=== PATIENT | male | born 1965 | race Caucasian/White ===

== ENCOUNTER 2016-08-13 07:44 | Inpatient (IN) ==
[2016-08-13] MEDS ORDERED: *HR* HYDROmorphone (PF) 1 MG/ML SYRINGE IVP ONE (07:57)
[2016-08-13] MEDS ORDERED: Pantoprazole 80 MG in 0.9 % Sodium Chloride 50 ML IVPB ONE (07:57)
[2016-08-13] MEDS ORDERED: Ondansetron 4 MG/2 ML VIAL IVP ONE (07:57)
[2016-08-13] MEDS ORDERED: Octreotide 50 MCG/ML SYRINGE IVP ONE (07:57)
--- NOTE | 2016-08-13 08:04 | Emergency Department Note ---
Disposition Clinical Impression: Acute GI bleeding, Throat cancer, Tongue cancer, Severe anemia Anemia Qualifiers: Anemia type: other cause Other causes of anemia: antineoplastic chemotherapy Qualified Code(s): D64.81 - Anemia due to antineoplastic chemotherapy Disposition: Admitted As Inpatient Condition: Serious [facility]errals: [facility] [Primary Care Provider[facility] - Time of Disposition: 10:43 GI Bleed HPI - General Chief complaint: ED GI Bleed Stated complaint: vomiting blood, blood coming out of peg tube Time Seen by Provider: 08/13/16 07:56 Source: patient, family Limitations: no limitations Nursing Notes Reviewed: Yes Vital Signs Reviewed: Yes - History of Present Illness HPI Narrative: Patient is a 50-year-old male with a past medical history of this, 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 Patient states that he vomited blood while sleeping some. - Related Data Home Medications Medication Instructions Recorded Confirmed Lisinopril [Zestril] 10 mg PO BID 01/26/16 08/10/16 OxyCODONE ER (12 HR) [OxyCONTIN] 40 mg PO Q8HR PRN 01/26/16 08/10/16 Baclofen 20 mg PO TID 03/14/16 08/10/16 Pregabalin [Lyrica] 150 mg PO BID 03/14/16 08/10/16 Ibuprofen [Motrin] 800 mg PO BID 08/13/16 08/13/16 Previous Rx's Medication Instructions Recorded Magic Mouthwash [Magic Mouthwash 10 ml PO QID PRN #240 ml 07/02/16 BLM] Ondansetron HCl [Zofran] 4 mg PO BID PRN #60 tablet 07/03/16 Prochlorperazine Maleate 10 mg PO Q8HR PRN #90 tablet 07/03/16 [Compazine] Allergies Allergy/AdvReac Type Severity Reaction Status Date / Time No Known Allergies Allergy Verified 02/14/15 06:26 Review of Systems: Patient complains of anterior neck pain All systems ED: reviewed and negative except as stated. Constitutional: Reports: weakness. Denies: fever, chills Cardiovascular: Reports: palpitations. Denies: chest pain Respiratory: Reports: cough. Denies: dyspnea, wheezes Gastrointestinal: Reports: vomiting. Denies: abdominal pain, nausea Musculoskeletal: Denies: back pain Past Medical History - Past Medical History Attestation: Yes The following information was validated with the patient. Medical history: Reports: cancer, hypertension Surgical history: Reports: herniorrhaphy (left inguinal), other (right hemiglossectomy and modified radical neck dissection) Psychiatric history: Reports: no psych history - Social History Smoking Status: Current every day smoker Smokeless Tobacco Status: No Alcohol use: Reports: occasionally Drug use: Reports: none Physical Exam Vital Signs Temperature 97.6 F 08/13/16 07:47 Pulse Rate 101 08/13/16 07:47 Respiratory Rate 16 08/13/16 07:47 Blood Pressure 121/49 08/13/16 07:47 O2 Sat by Pulse Oximetry 100 08/13/16 07:47 Temperature 97.6 F 08/13/16 07:47 Pulse Rate 98 08/13/16 08:00 Respiratory Rate 16 08/13/16 08:00 Blood Pressure 115/73 08/13/16 08:00 O2 Sat by Pulse Oximetry 100 08/13/16 08:00 Oxygen Delivery Oxygen Delivery Room Air -General Appearance: Patient is a 50-year-old male who appears much older than stated age. Patient is alert and oriented 3, speaks a very raspy voice, visible pallor -Neurological exam: Cranial nerves II-12 intact, no focal deficits observed, strength equal 5/5 bilaterally in upper and lower extremities, cerebellar motion test negative. Negative loss of sensation - Head Head exam: atraumatic, normocephalic, normal inspection, patient has minor scrapes and abrasions on his face to include medial brow and nose, no mastoid bruising - Eye Eye exam: Present: normal appearance, PERRL, EOMI, negative for scleral icterus positive for conjunctival pallor - ENT ENT exam: normal exam, normal oropharynx, mucous membranes moist, dried dark blood in mouth, dried blood in both nares, nose nontender to palpation - Neck Neck exam: Present: normal inspection, full ROM, trachea midline, negative JVD, tender to palpation throughout anterior cervical region - Chest Chest inspection: Present: Patient has bilateral equal rise and fall of chest wall. Non-tender to palpation. - Respiratory Respiratory exam: Clear to auscultation bilaterally without wheezes rales or rhonchi Cardiovascular Cardiovascular exam: Present: regular rate, normal rhythm, normal heart sounds, without murmurs rubs or gallops. - Abdominal Exam Abdominal exam: Present: soft, nondistended, Non-Tender light and deep palpation in all quadrants. Bowel sounds normoactive throughout all 4 quadrants. PEG tube left side of abdomen. Filled dark-colored fluid - Extremities Exam Extremities exam: Present: normal inspection, full ROM, Refill greater than 2 seconds pulses equal bilateral radial and dorsal pedal - Back Exam Back exam: Present: normal inspection, full ROM. Negative left or right CVA tenderness palpation - Psychiatric Psychiatric exam: Present: normal affect, normal mood - Skin Skin exam: Present: warm, dry, intact, pale color - General Limitations: no limitations General appearance: alert Course Course Narrative: Patient seen and examined. Labs ordered type and screen ordered. Patient's workup is in progress. Patient states his pain is 7 out of 10. Pain meds being administered now - Reevaluation(s) Reevaluation #1: Patient is doing well. Patient received medication for pain. Time: 09:00 Reevaluation #2: Patient still doing well. He just received discussion concerning DNR status and signed consent form for blood transfusion Time: 09:29 - Consultations Consultation #1: Dr. Carreon was consulted and will see the pt Time: 10:05 Consultation #2: Dr. Hughes has accepted the patient for admission Time: 10:54 Vital Signs Temperature 97.6 F 08/13/16 07:47 Pulse Rate 101 08/13/16 07:47 Respiratory Rate 16 08/13/16 07:47 Blood Pressure 121/49 08/13/16 07:47 O2 Sat by Pulse Oximetry 100 08/13/16 07:47 Temperature 98.1 F 08/13/16 11:00 Pulse Rate 84 08/13/16 11:30 Respiratory Rate 16 08/13/16 12:00 Blood Pressure 142/85 08/13/16 12:00 O2 Sat by Pulse Oximetry 100 08/13/16 11:30 Oxygen Delivery Oxygen Delivery Nasal Cannula GI Bleed - [facility] Narrative Medical decision making narrative: Mr. Avila is a 50-year-old male with a history, cell carcinoma to the tongue and throat. Patient currently under going chemotherapy last dose was 3 days ago. Patient presents with acute onset of GI bleed. Patient woke up and noticed he had thrown up blood on himself 6 hours ago. We had a detailed conversation with the patient concerning receiving blood transfusion today. Patient has consented to blood transfusion. Also had conversation about DNR status. Patient has elected DNR CCA. Patient's hemoglobin is 4.9 today. Previous hemoglobin and record 8.2. Hematocrit 50.4. Patient's BMP shows BUN of 48. Patient has a history of renal insufficiency as well. He is admitted to hospital. Dr. Philip hospice will see the patient and determine whether patient goes on to hospice from here on out. Dr. Hughes has accepted the patient for admission - Medical Records Medical records reviewed: Yes I reviewed the patient's medical records. - Lab Data Lab results reviewed: Yes I reviewed the patient's lab results. Lab results narrative: Short CBC 08/13/16 Range/Units 08:14 WBC 17.4 H D (4.3-11.1) K/mcL Hgb 4.9 L* D (12.9-16.9) g/dL Hct 15.4 L (37.5-50.1) % Plt Count 292 (140-400) K/mcL BMP 08/13/16 Range/Units 08:14 Sodium 143 D (136-145) mEq/L Potassium 4.5 (3.5-4.5) mEq/L Chloride 105 (98-109) mEq/L Carbon Dioxide 25 (19-29) mEq/L BUN 48 H D (8-26) mg/dL Creatinine 0.66 L (0.72-1.25) mg/dL Glucose 144 H (70-99) mg/dL Calcium 9.3 (8.6-10.8) mg/dL Result diagrams: 08/13/16 08:14 08/13/16 08:14 Lab Results 08/13/16 08/13/16 08/13/16 Range/Units 08:14 08:14 08:14 WBC 17.4 H D (4.3-11.1) K/mcL RBC 1.67 L (4.19-5.50) M/mcL Hgb 4.9 L* D (12.9-16.9) g/dL Hct 15.4 L (37.5-50.1) % MCV 92.2 (83.0-100.0) fL MCH 29.3 (28.0-33.3) pg MCHC 31.8 (31.6-35.5) g/dL RDW 18.8 H (11.5-14.5) % Plt Count 292 (140-400) K/mcL MPV 9.7 (9.4-12.4) fL Immature Gran % Test Not Performed Seg Neutrophils % 96.0 % Lymphocytes % 4.0 % Monocytes % Test Not Performed Eosinophils % Test Not Performed Basophils % Test Not Performed Neutrophils # 16.7 H (1.6-8.9) K/mcL Lymphocytes # 0.7 (0.6-4.6) K/mcL Monocytes # Test Not Performed Eosinophils # Test Not Performed Basophils # Test Not Performed Platelet Estimate Normal (Normal) PT 15.6 H (9.4-12.1) Seconds INR 1.4 APTT 31.0 (26.0-36.0) Seconds Sodium 143 D (136-145) mEq/L Potassium 4.5 (3.5-4.5) mEq/L Chloride 105 (98-109) mEq/L Carbon Dioxide 25 (19-29) mEq/L BUN 48 H D (8-26) mg/dL Creatinine 0.66 L (0.72-1.25) mg/dL Est GFR ( Amer) > 60 (> 60) Est GFR (Non-Af Amer) > 60 (> 60) BUN/Creatinine Ratio 73 H (6-26) Glucose 144 H (70-99) mg/dL Calculated Osmolality 311 H (280-300) Calcium 9.3 (8.6-10.8) mg/dL Magnesium 2.0 (1.6-2.6) mg/dL Blood Type Antibody Screen Crossmatch 08/13/16 Range/Units 08:14 WBC (4.3-11.1) K/mcL RBC (4.19-5.50) M/mcL Hgb (12.9-16.9) g/dL Hct (37.5-50.1) % MCV (83.0-100.0) fL MCH (28.0-33.3) pg MCHC (31.6-35.5) g/dL RDW (11.5-14.5) % Plt Count (140-400) K/mcL MPV (9.4-12.4) fL Immature Gran % Seg Neutrophils % % Lymphocytes % % Monocytes % Eosinophils % Basophils % Neutrophils # (1.6-8.9) K/mcL Lymphocytes # (0.6-4.6) K/mcL Monocytes # Eosinophils # Basophils # Platelet Estimate (Normal) PT (9.4-12.1) Seconds INR APTT (26.0-36.0) Seconds Sodium (136-145) mEq/L Potassium (3.5-4.5) mEq/L Chloride (98-109) mEq/L Carbon Dioxide (19-29) mEq/L BUN (8-26) mg/dL Creatinine (0.72-1.25) mg/dL Est GFR ( Amer) (> 60) Est GFR (Non-Af Amer) (> 60) BUN/Creatinine Ratio (6-26) Glucose (70-99) mg/dL Calculated Osmolality (280-300) Calcium (8.6-10.8) mg/dL Magnesium (1.6-2.6) mg/dL Blood Type A POSITIVE Antibody Screen NEGATIVE Crossmatch See Detail - Radiology Data Radiology results reviewed: Yes I reviewed the patient's radiology results. Chest X-Ray 08/13/16 07:57 IMPRESSION: No acute cardiopulmonary disease. Nondisplaced fracture of the right 1st rib, possibly a pathologic fracture. D/ / Bayron Morris MD / Bayron Morris MD Interpreting Provider: Bayron Morris MD Head CT 08/13/16 08:01 IMPRESSION: Small nonspecific area of low-attenuation in the right posterior parietal region, new from 06/25/2016. This may represent small infarct or edema from a metastatic lesion. Follow-up MRI brain with contrast is recommended. The study was motion degraded. D/ / Bayron Morris MD / Bayron Morris MD Interpreting Provider: Bayron Morris MD Gallbladder Ultrasound 08/13/16 08:25 IMPRESSION: Unremarkable right upper quadrant ultrasound. D/ / Carol Parisi MD / Carol Parisi MD Interpreting Provider: Carol Parisi MD - EKG Data EKG attestation: Yes I reviewed and interpreted this EKG. EKG results narrative: EKG taken 08/13/2016 at 0801 hrs. shows a normal sinus rhythm at a ventricular rate of 94 beats minute no acute ST elevations or depressions in leads T wave inversion Critical Care Time Critical Care Time: Yes Total Critical Care Time: 40 Attestation: Critical care performed: Time is exclusive of separately billable procedures. Time includes: direct patient care, patient reassessment, coordination of patient care, interpretation of data (laboratory data, radiology data, and respiratory data), review of patient's medical records, medical consultation and documentation of patient care. Procedures included in critical care time: Procedures excluded from critical care time: Attestation Statement - Attestation Attestation: I examined this patient and my medical decision-making was reviewed with the BATTERY CHARGER/PA/Advanced Practice Nurse/Resident Physician. I agree with the documented findings, disposition and treatment plan as described except to the extent set forth below. Patient to the emergency department with a chief complaint of vomiting blood. Onset last night. Patient currently undergoing treatment for terminal cancer. He had some large bloody emesis last night along with perioperative from his PEG tube. On exam the patient is pale. He has dark red blood in his PEG tube tubing. Plan. Small amount of dark red blood obtained with PEG tube was hooked up to suction. Patient is typed and crossed and a hemoglobin of 4. Beginning transfusion. Patient has a DNR comfort care arrest form being filled out and placed on his chart. Patient is adamant he does not want to be helped up to machines for life-support. He does not want any tubes intubated or put him on a ventilator. Patient be admitted for transfusions with palliative care consult. Transfusion started in ED. Hospitalist evaluated here as well. Admitted to medicine with palliative care consult.
[2016-08-13 08:23] LABS: Hematocrit 15.4 % (37.5-50.1); Mean Corpuscular HGB Conc 31.8 g/dL (31.6-35.5); Mean Corpuscular Hemoglobin 29.3 pg (28.0-33.3); Mean Corpuscular Volume 92.2 fL (83.0-100.0); Mean Platelet Volume 9.7 fL (9.4-12.4); Neutrophils # 16.7 K/mcL (1.6-8.9); Platelet Count 292 K/mcL (140-400); Red Blood Count 1.67 M/mcL (4.19-5.50); Red Cell Distribution Width 18.8 % (11.5-14.5)
[2016-08-13 08:31] LABS: INR 1.4; Prothrombin Time 15.6 Seconds (9.4-12.1)
[2016-08-13 08:37] LABS: BUN/Creatinine Ratio 73 (6-26); Calcium 9.3 mg/dL (8.6-10.8); Carbon Dioxide 25 mEq/L (19-29); Chloride 105 mEq/L (98-109); Glucose 144 mg/dL (70-99); Osmolality,Calculated 311 (280-300); Potassium 4.5 mEq/L (3.5-4.5); eGFR For African Americans > 60 (> 60); eGFR For Non-African Americans > 60 (> 60)
[2016-08-13 08:38] LABS: Blood Urea Nitrogen 48 mg/dL (8-26); Sodium 143 mEq/L (136-145)
[2016-08-13 08:42] LABS: Hemoglobin 4.9 g/dL (12.9-16.9)
[2016-08-13 09:36] LABS: Lymphocytes # 0.7 K/mcL (0.6-4.6)
[2016-08-13] MEDS: Pantoprazole 40 MG in 0.9 % Sodium Chloride Mini Bag 100 ML IVC SCH ×4 (09:36→18:36)
[2016-08-13 09:37] LABS: Platelet Estimate Normal (Normal)
[2016-08-13] MEDS ORDERED: 0.9 % Sodium Chloride 1,000 ML IVC ONE (10:35)
[2016-08-13] MEDS ORDERED: 0.9 % Sodium Chloride 500 ML ONE (10:36)
--- NOTE | 2016-08-13 11:09 | Palliative - Consult Note ---
<Sorin Hernandez - Last Filed: 08/13/16 14:21> Date of Encounter: 08/13/16 Time of Encounter: 11:08 - Assessment and Plan (1) Goals of care, counseling/discussion Current Visit: Yes Status: Acute Assessment and plan: Pt. with hx of head/neck cx here for GI bleed causing severe anemia. Discussed CODE STATUS. Patient and Patient POA/Niece both agree to DNR CCA DNI CODE STATUS Pt. interested in hospice but uncertain whether or not he'd like to stop chemotherapy at this time. After a long discussion with patient and family members in room patient will make a decision shortly. Current pain control regimen at home is 40mg oxycontin q8h. Currently ordered 0.5 mg IV dilaudid q4h prn. Will titrate as necessary to optimize pain control. Pt has zofran 4mg IV q4h prn for nausea Pt. states he is having regular bowel movements. (2) Acute GI bleeding Current Visit: Yes Status: Acute Assessment and plan: likely 2/2 GI bleed Hgb of 4.9 currently receiving 2 units PRBC care per primary team (3) Severe anemia Current Visit: Yes Status: Acute Assessment and plan: Likely 2/2 GI bleed as above, per primary team (4) Head and neck cancer Current Visit: Yes Status: Acute Assessment and plan: hx of head/neck squamous cell carcinoma has received chemo/radiation/resection planned to possibly have another round of chemo in approximately 3 weeks. Unclear at this time if pt. will proceed with chemo or will forgo chemo for hospice. Palliative-CN HPI - Data of Consult Patient: new to practice Consult date: 08/13/16 Requesting Physician: Adan Gustafson MD Primary Care Provider: [facility] - Consult Narrative Palliative Care/Comfort Measures: Palliative care History of present illness: Mr. Avila is a 50 year old male presented to ED with GI bleed. 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 Not surgically resectable. He has received multiple rounds of chemo and radiation along with s/p rt hemiglossectomy and rt neck node dissection. Niece is is HCP. His code status was discussed at the bedside with his niece in the room and he requested his CODE STATUS to be RUTH HACKETT DNI. He does not feel like the chemotherapy is helping him anymore and is considering hospice. He takes 40mg oxycodone q4h at home, but states that this is making him too sleepy and he recently started taking 20mg oxycodone q4h at home. He states that he has regular bowel movements. CC: Adan Gustafson MD Past Med Surg Social Fam HX - Past Medical History Medical history: cancer, hypertension Psychiatric history: no psych history - Past Surgical History Surgical History: herniorrhaphy (left inguinal), other (right hemiglossectomy and modified radical neck dissection) - Social History Smoking Status: Current every day smoker Smokeless Tobacco Status: No Alcohol use: occasionally Drug use: none - Family History Father Living Status: Mother Living Status: Hx Family Cancer: Yes (throat) Hx Family Endocrine Disorder: Yes Medications and Allergies Lisinopril [Zestril] 10 mg PO BID 01/26/16 [History] OxyCODONE ER (12 HR) [OxyCONTIN] 40 mg PO Q8HR PRN 01/26/16 [History] Baclofen 20 mg PO TID 03/14/16 [History] Pregabalin [Lyrica] 150 mg PO BID 03/14/16 [History] Magic Mouthwash [Magic Mouthwash BLM] 10 ml PO QID PRN #240 ml 07/02/16 [Rx] Ondansetron HCl [Zofran] 4 mg PO BID PRN #60 tablet 07/03/16 [Rx] Prochlorperazine Maleate [Compazine] 10 mg PO Q8HR PRN #90 tablet 07/03/16 [Rx] Ibuprofen [Motrin] 800 mg PO BID 08/13/16 [History] Allergies No Known Allergies Allergy (Verified 02/14/15 06:26) - Constitutional Constitutional ROS PAL: anorexia, fatigue, malaise - EENT Additional comments: s/p rt hemiglossectomy and rt neck node dissection - Cardiovascular Cardiovascular ROS: no chest pain - Respiratory Respiratory: dyspnea - Gastrointestinal Gastrointestinal: hematemesis, melena Additional comments: peg tube - Psychiatric Psychiatric general PM: depression Palliative Care-Exam - Constitutional Vitals: Temp Pulse Resp BP Pulse Ox 98.1 F 82 16 128/84 100 08/13/16 11:00 08/13/16 11:00 08/13/16 11:00 08/13/16 11:00 08/13/16 11:00 General appearance: Present: thin - Head Head Exam: Present: atraumatic - Expanded ENT Exam Mouth Exam: Present: muffled voice. Absent: tongue normal Throat exam: Absent: normal inspection - Neck Neck exam: Absent: full ROM - Respiratory Respiratory exam: Present: rhonchi. Absent: accessory muscle use - Cardiovascular Cardiovascular exam: Present: RRR (peg tube) - GI/Abdominal Exam GI/Abdominal exam: Absent: distended, firm - Neurological Exam Neurological exam: Present: alert, oriented X3 Internal Medicine - CN: Reslt - Labs CBC & Chem 7: 08/13/16 08:14 08/13/16 08:14 - ABG Interpretation ABG results: PT/INR, D-dimer PT 15.6 Seconds (9.4-12.1) H 08/13/16 08:14 Consult Discharge Plan - Plan [facility]errals: [facility] [Primary Care Provider] - Palliative Quality Palliative Quality: Screen for Code Status: Yes, Screen for Goals of Care: Yes, Screen for Pain: Yes, If Pain Regimen Started, Initiate Bowel Regimen: Yes, Screen for Nausea/Vomitting: Yes Code Status: DNR CCA DNI <Jaydon Carreon - Last Filed: 08/13/16 17:13> Date of Encounter: 08/13/16 Palliative-CN HPI - Data of Consult Requesting Physician: Adan Gustafson MD Primary Care Provider: PCP [place] - Consult Narrative History of present illness: Mr. Avila is a 50 year old male CC: Adan Gustafson MD Palliative Care-Exam - Constitutional Vitals: Temp Pulse Resp BP Pulse Ox 98.3 F 76 16 142/90 98 08/13/16 17:08 08/13/16 17:08 08/13/16 17:08 08/13/16 17:08 08/13/16 17:08 Internal Medicine - CN: Reslt - Labs CBC & Chem 7: 08/13/16 08:14 08/13/16 08:14 - ABG Interpretation ABG results: PT/INR, D-dimer PT 15.6 Seconds (9.4-12.1) H 08/13/16 08:14 - Attending Attestation I examined this patient and my medical decision-making was reviewed with the [employer] SPECIALIST/PA/Advanced Practice Nurse/Resident Physician. I agree with the documented findings, disposition and treatment plan as described except to the extent set forth below.
[2016-08-13] MEDS ORDERED: Naloxone 0.4 MG/ML INJ IVP PRN (12:45)
--- NOTE | 2016-08-13 13:04 | Internal Med History&Physical ---
Date of Encounter: 08/13/16 Time of Encounter: 11:00 Assessment and Plan (1) Tobacco abuse disorder Current visit: Yes Status: Acute While providing neck and then patch. (2) Acute GI bleeding Current visit: Yes Status: Acute Transfuse 2 units PRBC. Check hemoglobin and hematocrit every 6 hours. Consult GI for upper endoscopy. The case discussed with ED physician and they have recommended and already contacted palliative care services. IV Protonix bolus given and ED, was start Protonix drip. Nothing by mouth. Nothing but the PEG tube. Case discussed with GI. Plan for EGD tomorrow after he has been transfused for hemoglobin above 7. The patient is at high risk for morbidity mortality and complications due to acute GI bleed requiring urgent invasive procedure, cancer involving the vital organs and treatment with intravenous controlled substances. (3) Head and neck cancer Current visit: Yes Status: Acute Consult palliative care. (4) Severe anemia Current visit: Yes Status: Acute Likely acute on chronic secondary to GI bleed and decreased production secondary to malignancy. We will transfuse to bring hemoglobin above 7.0. We will monitor clinically. (5) Protein-calorie malnutrition, severe Current visit: No Status: Acute Nutrition consult. Hold tube feeds for now until cleared by GI. (6) DVT prophylaxis Current visit: Yes Status: Acute SCDs. No pharmacological prophylaxis due to acute GI bleed. Internal Medicine - H&P: HPI Chief complaint: Vomiting blood Admitted From: Emergency Dept Plans for Post Hospital Care: Hospice - Home History of present illness: Mr. 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 He started having copious amounts of bloody vomitus associated with nausea early this morning woke him up from sleep, denies any associated shortness of breath or abdominal pain. He also noted some bloody leakage around the PEG tube and through the PEG tube yesterday that he does not have any vomiting yesterday. He was evaluated in the emergency department and his hemoglobin was 4.9. He was ordered for 2 units of blood. He was referred for admission. Review of systems: Positive for generalized weakness, dysphagia, chronic pain, GI bleed as above otherwise 10 systems reviewed and found negative Past Med Surg Social Fam HX - Past Medical History Medical history: cancer, hypertension Psychiatric history: no psych history - Past Surgical History Surgical History: herniorrhaphy (left inguinal), other (right hemiglossectomy and modified radical neck dissection) - Social History Smoking Status: Current every day smoker Smokeless Tobacco Status: No Alcohol use: occasionally Drug use: none - Family History Father Living Status: Mother Living Status: Hx Family Cancer: Yes (throat) Hx Family Endocrine Disorder: Yes Internal Medicine - H&P: Meds Lisinopril [Zestril] 10 mg PO BID 01/26/16 [History] OxyCODONE ER (12 HR) [OxyCONTIN] 40 mg PO Q8HR PRN 01/26/16 [History] Baclofen 20 mg PO TID 03/14/16 [History] Pregabalin [Lyrica] 150 mg PO BID 03/14/16 [History] Magic Mouthwash [Magic Mouthwash BLM] 10 ml PO QID PRN #240 ml 07/02/16 [Rx] Ondansetron HCl [Zofran] 4 mg PO BID PRN #60 tablet 07/03/16 [Rx] Prochlorperazine Maleate [Compazine] 10 mg PO Q8HR PRN #90 tablet 07/03/16 [Rx] Ibuprofen [Motrin] 800 mg PO BID 08/13/16 [History] Allergies No Known Allergies Allergy (Verified 02/14/15 06:26) All Systems PM: A 10-system review of systems was performed and is negative for pertinent findings except as documented above in the HPI. - Constitutional Vitals: Temp Pulse Resp BP Pulse Ox 98.1 F 84 16 142/85 100 08/13/16 11:00 08/13/16 11:30 08/13/16 12:00 08/13/16 12:00 08/13/16 11:30 General appearance: Present: cachectic, A&O X 3 - Eye Eye exam: Present: PERRL, conjuntiva pink, sclera anicteric Pupils: Present: PERRL - Neck Additional comments: Right cervical mass palpated adherent to the underlying muscles. Postoperative changes noted. - Respiratory Respiratory exam: Present: CTAB. Absent: accessory muscle use, rales, rhonchi, wheezes - Cardiovascular Cardiovascular exam: Present: RRR, +S1, +S2. Absent: diastolic murmur, gallop, rubs, systolic murmur - GI/Abdominal GI/Abdominal exam: Present: normal bowel sounds, soft, no peritoneal signs. Absent: distended, tenderness Additional comments: PEG tube present in place connected to suction draining dark red bloody material - Extremities Exam Extremities exam: Present: warm, radial pulses palpable and symetrical. Absent : calf tenderness, cyanotic, pedal edema - Skin Skin exam: Present: dry, intact Internal Med - H&P Results - Labs CBC & Chem 7: 08/13/16 08:14 08/13/16 08:14
[2016-08-13] MEDS: D5% in 0.45% NACL 1,000 ML IVC SCH (13:08)
[2016-08-13] MEDS: *HR* HYDROmorphone (PF) 1 MG/ML SYRINGE IVP PRN ×3 (13:12→23:13)
[2016-08-13] MEDS ORDERED: 0.9 % Sodium Chloride 250 ML ONE (13:47)
[2016-08-13] MEDS: Ondansetron 4 MG/2 ML VIAL IVP PRN (15:32)
[2016-08-13] MEDS: Nicotine 21 MG PATCH.TD24 TD SCH (17:05)
[2016-08-13 18:49] LABS: Hematocrit 21.4 % (37.5-50.1)
[2016-08-13] MEDS ORDERED: Furosemide 20 MG/2 ML VIAL IVP ONE (19:04)
[2016-08-14] MEDS: Pantoprazole 40 MG in 0.9 % Sodium Chloride Mini Bag 100 ML IVC SCH ×3 (00:38→10:51)
[2016-08-14 01:28] LABS: Hematocrit 23.7 % (37.5-50.1); Hemoglobin 7.8 g/dL (12.9-16.9)
[2016-08-14 01:41] LABS: Calcium 8.7 mg/dL (8.6-10.8); Carbon Dioxide 27 mEq/L (19-29); Chloride 102 mEq/L (98-109); Glucose 142 mg/dL (70-99); Magnesium 1.6 mg/dL (1.6-2.6); Potassium 3.6 mEq/L (3.5-4.5); Sodium 139 mEq/L (136-145); eGFR For African Americans > 60 (> 60); eGFR For Non-African Americans > 60 (> 60)
[2016-08-14] MEDS: *HR* HYDROmorphone (PF) 1 MG/ML SYRINGE IVP PRN ×8 (02:07→23:58)
[2016-08-14 02:13] LABS: BUN/Creatinine Ratio 59 (6-26); Osmolality,Calculated 298 (280-300)
[2016-08-14 02:16] LABS: Blood Urea Nitrogen 35 mg/dL (8-26)
[2016-08-14] MEDS ORDERED: 0.9 % Sodium Chloride 500 ML ONE (03:26)
[2016-08-14] MEDS: D5% in 0.45% NACL 1,000 ML IVC SCH ×2 (03:38→16:56)
[2016-08-14] MEDS: Ondansetron 4 MG/2 ML VIAL IVP PRN (04:03)
[2016-08-14] MEDS ORDERED: *HR* HYDROmorphone 2 MG/ML SYRINGE IVP PRN (05:32)
[2016-08-14] MEDS ORDERED: *HR* FentaNYL PATCH 50 MCG PATCH TD SCH (06:00)
[2016-08-14 08:15] LABS: Basophils % 0.2 %; Hematocrit 28.9 % (37.5-50.1); Immature Granulocytes % 0.5 % (0-4); Lymphocytes # 0.3 K/mcL (0.6-4.6); Lymphocytes % 2.4 %; Mean Corpuscular HGB Conc 33.2 g/dL (31.6-35.5); Mean Corpuscular Hemoglobin 28.2 pg (28.0-33.3); Mean Platelet Volume 9.8 fL (9.4-12.4); Monocytes # 0.2 K/mcL (0.0-1.3); Monocytes % 1.3 %; Neutrophils # 11.8 K/mcL (1.6-8.9); Platelet Count 205 K/mcL (140-400); Red Blood Count 3.41 M/mcL (4.19-5.50); Red Cell Distribution Width 17.1 % (11.5-14.5); Segmented Neutrophils % 95.6 %
[2016-08-14 08:18] LABS: Hemoglobin 9.6 g/dL (12.9-16.9); Mean Corpuscular Volume 84.8 fL (83.0-100.0)
[2016-08-14] MEDS: Nicotine 21 MG PATCH.TD24 TD SCH (08:24)
[2016-08-14 09:12] LABS: % Iron Saturation 87 % (20-55); Iron 257 mcg/dL (65-175); Transferrin 211 mg/dL (174-364)
[2016-08-14 09:35] LABS: Ferritin 339 ng/ml (22-275)
--- NOTE | 2016-08-14 10:58 | Palliative Progress Note ---
<Sorin Hernandez - Last Filed: 08/14/16 11:24> Date of Encounter: 08/14/16 Time of Encounter: 10:44 - Assessment and plan (1) Goals of care, counseling/discussion Current Visit: Yes Status: Acute Assessment and plan: Patient seen and examined. Goals of care discussion continued. Pt. still plans to return home. He is still undecided as to whether he wants to continue chemotherapy for his head/ neck cancer, or if he wants to go hospice. Family was curious as to if he could be in hospice and still receive chemotherapy, but this is not possible. GI is consulted and will see patient today for possible scope to search for source of bleeding. He had recent PEG tube placed approximately two months ago. CODED STATUS remains DNR [facility] DNI For pain control, patient previously had been on a fentanyl patch for a number of years, but does not like this medication. During this stay a fentanyl patch was ordered, but patient refused. He is currently receiving 1MG dilaudid IV q2h PRN. He is happy with this current pain regimen. Pt. requested this not be changed at this time. He can be transitioned back to his home meds as he gets closer to discharge. His med list has been updated accordingly. He has not had a BM for two days, per patient. Started on Senna BID. Denies nausea at this time. Protonix for GI prophylaxis. (2) Acute GI bleeding Current Visit: Yes Status: Acute Assessment and plan: GI to see patient today for possible scope. He has received 3 units PRBC during this stay. Hgb 4.9 upon admission. Today is 9.6 Vital signs are stable (3) Severe anemia Current Visit: Yes Status: Acute Assessment and plan: transfuse as needed (4) Head and neck cancer Current Visit: Yes Status: Chronic Assessment and plan: stable Dr. Fay is oncologist Undecided whether or not he will continue with chemotherapy at this time. - Time Spent With Patient Total time spent is greater than 50% in coordination of care (as documented) at patient's floor/unit and/or counseling patient: - Subjective Interval history: Patient seen and examined. Received 2 units PRBC yesterday without complication. Pt. states he is feeling much better this am. GI to see pt. this afternoon for elucidation of GI bleed. Sitting comfortably in chair. Conversational. States pain is well controlled with current regimen. States he has not had a BM for a few days. Denies n/v/d - Constitutional Vitals: Abnormal lab results WBC 12.3 K/mcL (4.3-11.1) H 08/14/16 08:00 RBC 3.41 M/mcL (4.19-5.50) L 08/14/16 08:00 Hgb 9.6 g/dL (12.9-16.9) L D 08/14/16 08:00 Hct 28.9 % (37.5-50.1) L 08/14/16 08:00 RDW 17.1 % (11.5-14.5) H 08/14/16 08:00 Neutrophils # 11.8 K/mcL (1.6-8.9) H 08/14/16 08:00 Lymphocytes # 0.3 K/mcL (0.6-4.6) L 08/14/16 08:00 PT 15.6 Seconds (9.4-12.1) H 08/13/16 08:14 BUN 35 mg/dL (8-26) H D 08/14/16 01:13 Creatinine 0.59 mg/dL (0.72-1.25) L 08/14/16 01:13 BUN/Creatinine Ratio 59 (6-26) H 08/14/16 01:13 Glucose 142 mg/dL (70-99) H 08/14/16 01:13 Iron 257 mcg/dL (65-175) H 08/14/16 08:00 % Saturation 87 % (20-55) H 08/14/16 08:00 Ferritin 339 ng/ml (22-275) H 08/14/16 08:00 General appearance: Present: cooperative, no acute distress, thin - ENT ENT exam: Absent: normal exam Additional comments: partial tongue resection - Respiratory Respiratory exam: Present: decreased breath sounds, wheezes - Cardiovascular Cardiovascular exam: Present: RRR - GI/Abdominal GI/Abdominal exam: Present: normal bowel sounds. Absent: distended, firm, guarding - Neurological Exam Neurological exam: Present: alert, oriented X3 Palliative Quality Palliative Quality: Screen for Code Status: Yes, Screen for Goals of Care: Yes, Screen for Pain: Yes, If Pain Regimen Started, Initiate Bowel Regimen: Yes, Screen for Nausea/Vomitting: Yes - Labs CBC & Chem 7: 08/14/16 08:00 08/14/16 01:13 Labs: Laboratory Results - last 24 hr 08/13/16 08/14/16 08/14/16 18:37 01:13 01:13 WBC RBC Hgb 7.0 L D 7.8 L Hct 21.4 L 23.7 L MCV MCH MCHC RDW Plt Count MPV Immature Gran % Seg Neutrophils % Lymphocytes % Monocytes % Eosinophils % Basophils % Neutrophils # Lymphocytes # Monocytes # Eosinophils # Basophils # Sodium 139 Potassium 3.6 Chloride 102 Carbon Dioxide 27 BUN 35 H D Creatinine 0.59 L Est GFR ( Amer) > 60 Est GFR (Non-Af Amer) > 60 BUN/Creatinine Ratio 59 H Glucose 142 H Calculated Osmolality 298 Calcium 8.7 Magnesium 1.6 Iron % Saturation Transferrin Ferritin 08/14/16 08/14/16 08:00 08:00 WBC 12.3 H RBC 3.41 L Hgb 9.6 L D Hct 28.9 L MCV 84.8 D MCH 28.2 MCHC 33.2 RDW 17.1 H Plt Count 205 MPV 9.8 Immature Gran % 0.5 Seg Neutrophils % 95.6 Lymphocytes % 2.4 Monocytes % 1.3 Eosinophils % 0.0 Basophils % 0.2 Neutrophils # 11.8 H Lymphocytes # 0.3 L Monocytes # 0.2 Eosinophils # 0.0 Basophils # 0.0 Sodium Potassium Chloride Carbon Dioxide BUN Creatinine Est GFR ( Amer) Est GFR (Non-Af Amer) BUN/Creatinine Ratio Glucose Calculated Osmolality Calcium Magnesium Iron 257 H % Saturation 87 H Transferrin 211 Ferritin 339 H - ABG Interpretation ABG results: PT/INR, D-dimer PT 15.6 Seconds (9.4-12.1) H 08/13/16 08:14 Consult Discharge Plan - Plan [facility]errals: [facility] [Primary Care Provider] - <Jaydon Carreon - Last Filed: 08/14/16 12:56> Date of Encounter: 08/14/16 - Time Spent With Patient Total time spent is greater than 50% in coordination of care (as documented) at patient's floor/unit and/or counseling patient: - Constitutional Vitals: Abnormal lab results WBC 12.3 K/mcL (4.3-11.1) H 08/14/16 08:00 RBC 3.41 M/mcL (4.19-5.50) L 08/14/16 08:00 Hgb 9.6 g/dL (12.9-16.9) L D 08/14/16 08:00 Hct 28.9 % (37.5-50.1) L 08/14/16 08:00 RDW 17.1 % (11.5-14.5) H 08/14/16 08:00 Neutrophils # 11.8 K/mcL (1.6-8.9) H 08/14/16 08:00 Lymphocytes # 0.3 K/mcL (0.6-4.6) L 08/14/16 08:00 PT 15.6 Seconds (9.4-12.1) H 08/13/16 08:14 BUN 35 mg/dL (8-26) H D 08/14/16 01:13 Creatinine 0.59 mg/dL (0.72-1.25) L 08/14/16 01:13 BUN/Creatinine Ratio 59 (6-26) H 08/14/16 01:13 Glucose 142 mg/dL (70-99) H 08/14/16 01:13 Iron 257 mcg/dL (65-175) H 08/14/16 08:00 % Saturation 87 % (20-55) H 08/14/16 08:00 Ferritin 339 ng/ml (22-275) H 08/14/16 08:00 - Attending Attestation I examined this patient and my medical decision-making was reviewed with the HAULAGE ENGINE OPERATOR/PA/Advanced Practice Nurse/Resident Physician. I agree with the documented findings, disposition and treatment plan as described except to the extent set forth below. - Labs CBC & Chem 7: 08/14/16 08:00 08/14/16 01:13 Labs: Laboratory Results - last 24 hr 08/13/16 08/14/16 08/14/16 18:37 01:13 01:13 WBC RBC Hgb 7.0 L D 7.8 L Hct 21.4 L 23.7 L MCV MCH MCHC RDW Plt Count MPV Immature Gran % Seg Neutrophils % Lymphocytes % Monocytes % Eosinophils % Basophils % Neutrophils # Lymphocytes # Monocytes # Eosinophils # Basophils # Sodium 139 Potassium 3.6 Chloride 102 Carbon Dioxide 27 BUN 35 H D Creatinine 0.59 L Est GFR ( Amer) > 60 Est GFR (Non-Af Amer) > 60 BUN/Creatinine Ratio 59 H Glucose 142 H Calculated Osmolality 298 Calcium 8.7 Magnesium 1.6 Iron % Saturation Transferrin Ferritin 08/14/16 08/14/16 08:00 08:00 WBC 12.3 H RBC 3.41 L Hgb 9.6 L D Hct 28.9 L MCV 84.8 D MCH 28.2 MCHC 33.2 RDW 17.1 H Plt Count 205 MPV 9.8 Immature Gran % 0.5 Seg Neutrophils % 95.6 Lymphocytes % 2.4 Monocytes % 1.3 Eosinophils % 0.0 Basophils % 0.2 Neutrophils # 11.8 H Lymphocytes # 0.3 L Monocytes # 0.2 Eosinophils # 0.0 Basophils # 0.0 Sodium Potassium Chloride Carbon Dioxide BUN Creatinine Est GFR ( Amer) Est GFR (Non-Af Amer) BUN/Creatinine Ratio Glucose Calculated Osmolality Calcium Magnesium Iron 257 H % Saturation 87 H Transferrin 211 Ferritin 339 H - ABG Interpretation ABG results: PT/INR, D-dimer PT 15.6 Seconds (9.4-12.1) H 08/13/16 08:14
[2016-08-14] MEDS ORDERED: *HR* Promethazine 25 MG/ML VIAL ONE (11:36)
[2016-08-14] MEDS: *HR* Promethazine 25 MG/ML VIAL IVP PRN ×2 (11:41→18:48)
--- NOTE | 2016-08-14 12:25 | Gastroenterology Consult Note ---
<Elder Bang Antonieta - Last Filed: 08/14/16 12:22> Date of Encounter: 08/14/16 Time of Encounter: 10:40 - Assessment and plan (1) Hematemesis without nausea Current Visit: Yes Status: Acute Assessment and plan: Pt with several episodes of hematemesis. He presented to the hospital with Hgb 4.9. RUQ US was unremarkable. Plan for EGD today to r/o esophagitis, gastritis, duodenitis, PUD, MW tear, or AVM. Keep pt NPO. (2) Severe anemia Current Visit: Yes Status: Acute Assessment and plan: Secondary to hematemesis. Continue to monitor CBC and transfuse PRBC as needed. Check iron and ferritin from ED sample. (3) Head and neck cancer Current Visit: Yes Status: Chronic - Time Spent With Patient Total time spent is greater than 50% in coordination of care (as documented) at patient's floor/unit and/or counseling patient: GI History of Present Illness - Data of Consult Patient: new to practice Consult date: 08/14/16 Requesting Physician: Zhang Evans - Consult Narrative Reason for consult: Hematemesis History of present illness: Mr. 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 History of severe dysphagia requiring PEG tube insertion. He presented with hematemesis and blood leaking around PEG tube. He started having copious amount of hematemesis yesterday morning. He denied SOB or abdominal pain. Hgb 4.9 on admission, and has received 4 units PRBC. Hgb 9.6 this AM with MCV 84.8. Procedures: EGD 02/07/2015 Dr. Morales: Gastritis, duodenitis, and Gonzalez's esophagus. NSAIDs: Ibuprofen Anticoagulation: None Past Med Surg Social Fam HX - Past Medical History Medical history: cancer, hypertension Psychiatric history: no psych history - Past Surgical History Surgical History: herniorrhaphy (left inguinal), other (right hemiglossectomy and modified radical neck dissection) - Social History Smoking Status: Current every day smoker Smokeless Tobacco Status: No Alcohol use: occasionally Drug use: none - Family History Father Living Status: Mother Living Status: Hx Family Cancer: Yes (throat) Hx Family Endocrine Disorder: Yes - Gastrointestinal Gastrointestinal: Present: as per HPI - Constitutional Constitutional: as per HPI - EENT Eyes: as per HPI Ears: Present: as per HPI Nose, mouth and throat: Present: as per HPI - Cardiovascular Cardiovascular ROS: Present: as per HPI - Respiratory Respiratory IM: Present: as per HPI - Genitourinary Genitourinary: Absent: change in color, Urinary frequency - Neurological ROS Neurological GI: Present: as per HPI - Hematologic/Lymphatic Hematologic/Lymphatic pediatric: Present: as per HPI - Musculoskeletal Musculoskeletal ROS GI: Present: as per HPI - Integumentary Integumentary GI: Present: as per HPI - Psychiatric ROS Psychiatric GI: Present: as per HPI - Endocrine Endocrine IM: Present: as per HPI - Constitutional Vitals: Temp Pulse Resp BP Pulse Ox 98.4 F 77 18 156/96 97 08/14/16 10:45 08/14/16 10:45 08/14/16 10:45 08/14/16 10:45 08/14/16 10:45 General appearance: Present: cooperative, A&O X 3, no acute distress, answers questions appropriately - Head Head exam: Present: atraumatic, normocephalic - Eye Eye exam: Present: normal appearance, sclera anicteric - ENT Additional comments: s/p right hemiglossectomy and neck node dissection. - Respiratory Respiratory exam: Present: CTAB. Absent: rales, rhonchi - Cardiovascular Cardiovascular exam: Present: RRR, +S1, +S2 - GI/Abdominal GI/Abdominal exam: Present: normal bowel sounds, soft, no peritoneal signs. Absent: distended, firm, guarding, tenderness Additional comments: PEG tube in place, to suction, draining dark material. - Rectal Rectal exam: Present: deferred - Extremities Exam Extremities exam: Present: warm - Neurological Exam Neurological exam: Present: no focal deficits - Psychiatric Psychiatric exam: Present: normal affect, normal mood - Skin Skin exam: Present: dry, intact, normal color, warm Results - Labs CBC & Chem 7: 08/14/16 08:00 08/14/16 01:13 Labs: Last Result Calcium 8.7 mg/dL (8.6-10.8) 08/14/16 01:13 Iron 257 mcg/dL (65-175) H 08/14/16 08:00 % Saturation 87 % (20-55) H 08/14/16 08:00 Transferrin 211 mg/dL (174-364) 08/14/16 08:00 Ferritin 339 ng/ml (22-275) H 08/14/16 08:00 Entire Visit Hgb 9.6 g/dL (12.9-16.9) L D 08/14/16 08:00 Hct 28.9 % (37.5-50.1) L 08/14/16 08:00 PT 15.6 Seconds (9.4-12.1) H 08/13/16 08:14 Ferritin 339 ng/ml (22-275) H 08/14/16 08:00 - ABG ABG results: PT/INR, D-dimer PT 15.6 Seconds (9.4-12.1) H 08/13/16 08:14 Consult Discharge Plan - Plan [facility]errals: [facility] [Primary Care Provider] - <Preeti Macias - Last Filed: 08/14/16 17:28> Date of Encounter: 08/14/16 Time of Encounter: 13:40 - Time Spent With Patient Total time spent is greater than 50% in coordination of care (as documented) at patient's floor/unit and/or counseling patient: GI History of Present Illness - Data of Consult Requesting Physician: Zhang Evans - Consult Narrative History of present illness: Mr. Avila is a 50 year old male - Constitutional Vitals: Temp Pulse Resp BP Pulse Ox 97.5 F L 81 14 147/91 95 08/14/16 15:21 08/14/16 15:38 08/14/16 15:38 08/14/16 15:38 08/14/16 15:38 Results - Labs CBC & Chem 7: 08/14/16 08:00 08/14/16 01:13 Labs: Last Result Calcium 8.7 mg/dL (8.6-10.8) 08/14/16 01:13 Iron 257 mcg/dL (65-175) H 08/14/16 08:00 % Saturation 87 % (20-55) H 08/14/16 08:00 Transferrin 211 mg/dL (174-364) 08/14/16 08:00 Ferritin 339 ng/ml (22-275) H 08/14/16 08:00 Entire Visit Hgb 9.6 g/dL (12.9-16.9) L D 08/14/16 08:00 Hct 28.9 % (37.5-50.1) L 08/14/16 08:00 PT 15.6 Seconds (9.4-12.1) H 08/13/16 08:14 Ferritin 339 ng/ml (22-275) H 08/14/16 08:00 - ABG ABG results: PT/INR, D-dimer PT 15.6 Seconds (9.4-12.1) H 08/13/16 08:14 - Attending Attestation I examined this patient and my medical decision-making was reviewed with the EMPLOYEE COMMUNICATIONS COORDINATOR/PA/Advanced Practice Nurse/Resident Physician. I agree with the documented findings, disposition and treatment plan as described except to the extent set forth below.
[2016-08-14] MEDS ORDERED: Propofol 500 MG/50 ML INFUS..BTL ONE (13:33)
--- NOTE | 2016-08-14 13:38 | Anesthesia Evaluation PreOp ---
Date of Encounter: 08/14/16 Time of Encounter: 13:35 - Past History Planned Operation: egd Cardiac History: HTN, Other (s/p 3 units prbc) Pulmonary History: Smoker, Other (tongue and neck cancer) JET PILOT History: Denies Any Significant HX Other Medical History: Denies Any Significant HX, Other (dysphagia) Anesthesia History: No Prior Anesthetic Complications, Past Anesthesia (peg tube , r hemiglossectomy, neck dissection) Alcohol Use: occasionally Drug use: none Medications and Allergies Lisinopril [Zestril] 10 mg PO BID 01/26/16 [History] OxyCODONE ER (12 HR) [OxyCONTIN] 40 mg PO Q8HR PRN 01/26/16 [History] Baclofen 20 mg PO TID 03/14/16 [History] Pregabalin [Lyrica] 150 mg PO BID 03/14/16 [History] Magic Mouthwash [Magic Mouthwash BLM] 10 ml PO QID PRN #240 ml 07/02/16 [Rx] Ondansetron HCl [Zofran] 4 mg PO BID PRN #60 tablet 07/03/16 [Rx] Prochlorperazine Maleate [Compazine] 10 mg PO Q8HR PRN #90 tablet 07/03/16 [Rx] Ibuprofen [Motrin] 800 mg PO BID 08/13/16 [History] Allergies No Known Allergies Allergy (Verified 02/14/15 06:26) - Meds/Allergy Pre-op Review Medications Reviewed: Yes Allergies Reviewed: Yes Beta Blockers on Current Med List: No Anesthesia Results - Labs 08/14/16 08:00 08/14/16 01:13 Anesthesia Exam Vital Signs/O2 Sat/Glucose, Most Current Temp Pulse Resp BP Pulse Ox 08/14/16 10:45 98.4 F 77 18 156/96 97 Height: 1.63 Weight: 45 NPO (# of Hours): >8 - HEENT Pupil (Motor): Pupils equal, EOMI Mallampati: II Teeth: Poor dentition Oral Opening: Less than or equal to 3 (limited neck ext) - JET PILOT LOC: Oriented JET PILOT Motor: Normal RUE, Normal LUE, Normal RLE, Normal LLE, Normal Face JET PILOT Sensory: Normal: RUE, LUE, RLE, LLE, Face - Cardiac Rhythm: Regular Murmur: None - Pulmonary Breath Sounds: bilateral Clear Respiratory Effort: Symmetrical Anesthesia Assess/Plan ASA Score: 3 (difficult airway cart will be in the room) Modified Gopi Scale for Level of Consciousness: Cooperative, oriented, and tranquil Anesthetic Plan: MAC (we will be prepared with lma 4 and fully loaded reg and peds FO scope 6.5/5.5 we will titrate propofol slowly to maintaine SV) Monitoring Plan: Standard Monitors Recovery Plan: Other
[2016-08-14] MEDS ORDERED: Albuterol 2.5 MG/3 ML NEBULIZER ONE (14:20)
--- NOTE | 2016-08-14 15:16 | Anesthesia Evaluation Post Op ---
Date of Encounter: 08/14/16 Time of Encounter: 15:05 - Vital Signs Vital Signs: Vital Signs/O2 Sat/Glucose, Most Current Temp Pulse Resp BP Pulse Ox 08/14/16 14:20 99 F 79 18 165/101 96 - Lungs Lungs: Clear Ascult./Percussion - Airway Airway: Non-obstructed - Cardiovascular Regular Rate - Mental Status Mental Status: Alert & Oriented, Answers Appropriately - Pain Pain Scale: 0 - Nausea Vomiting Nausea Vomiting: Not Present - Hydration Hydration: NPO - Discharge PostOp Status: Transfer Patient to floor
--- NOTE | 2016-08-14 15:41 | Internal Med Progress Note ---
Date of Encounter: 08/14/16 Time of Encounter: 15:39 - Assessment and plan (1) Acute GI bleeding Current Visit: Yes Status: Acute Assessment and plan: Acute blood loss anemia secondary to upper GI bleed/hematemesis, possible gastric ulcers Status post 3 units of red blood cells Await final report of upper endoscopy Continue Protonix IV, monitor CBC May use Lasix due to volume overload (2) Hematemesis without nausea Current Visit: Yes Status: Acute (3) Severe anemia Current Visit: Yes Status: Acute Assessment and plan: Had a hemoglobin of 4.9 (4) Throat cancer Current Visit: Yes Status: Acute Assessment and plan: 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 with right neck dissection in December 2014 status post chemotherapy (5) Head and neck cancer Current Visit: Yes Status: Chronic (6) Oropharyngeal dysphagia Current Visit: No Status: Acute Assessment and plan: Continue PEG tube feedings if cleared by GI (7) Protein-calorie malnutrition, severe Current Visit: No Status: Acute (8) Weight loss Current Visit: No Status: Acute (9) Tongue cancer Current Visit: No Status: Chronic Assessment and plan: High risk of aspiration (10) Severe protein-calorie malnutrition Current Visit: Yes Status: Acute Assessment and plan: Resume tube feeds when possible - Time Spent With Patient Greater than 35 minutes - Subjective Interval history: has not vomited again, denies CP or SOB , no abdomianl pain. No dysuria or diarrhea. No hematemesis - Constitutional Vitals: Temp Pulse Resp BP Pulse Ox 97.5 F L 77 17 176/109 89 L 08/14/16 15:21 08/14/16 15:21 08/14/16 15:21 08/14/16 15:21 08/14/16 15:21 General appearance: Present: cachectic, A&O X 3 Exam: Dysarthria secondary to prior right hemiglossectomy - Head Head exam: Present: atraumatic, normocephalic - Eye Eye exam: Present: PERRL, conjuntiva pink, sclera anicteric Pupils: Present: PERRL - Neck Neck exam general surgery: Present: supple, trachea midline. Absent: lymphadenopathy - Respiratory Respiratory exam: Present: CTAB, rales (Diffuse crackles/volume overload). Absent: accessory muscle use, rhonchi, wheezes - Cardiovascular Cardiovascular exam: Present: RRR, +S1, +S2. Absent: diastolic murmur, gallop, rubs, systolic murmur - GI/Abdominal GI/Abdominal exam: Present: normal bowel sounds, soft, no peritoneal signs. Absent: distended, tenderness Additional comments: PEG tube in place - Extremities Exam Extremities exam: Present: warm, radial pulses palpable and symetrical. Absent : calf tenderness, cyanotic, pedal edema - Neurological Exam Neurological exam: Present: CN II-XII intact, oriented X3, no focal deficits. Absent: pronater drift, facial droop, speech deficit - Skin Skin exam: Present: dry, intact Internal Medicine: Result - Labs CBC & Chem 7: 08/14/16 08:00 08/14/16 01:13 Labs: Short CBC 08/13/16 08/14/16 08/14/16 Range/Units 18:37 01:13 08:00 WBC 12.3 H (4.3-11.1) K/mcL Hgb 7.0 L D 7.8 L 9.6 L D (12.9-16.9) g/dL Hct 21.4 L 23.7 L 28.9 L (37.5-50.1) % Plt Count 205 (140-400) K/mcL Neutrophils # 11.8 H (1.6-8.9) K/mcL BMP 08/14/16 01:13 Sodium 139 Potassium 3.6 Chloride 102 Carbon Dioxide 27 BUN 35 H D Creatinine 0.59 L Glucose 142 H Calcium 8.7 - ABG Interpretation ABG results: PT/INR, D-dimer PT 15.6 Seconds (9.4-12.1) H 08/13/16 08:14 Consult Discharge Plan - Plan [facility]errals: [facility] [Primary Care Provider] -
[2016-08-14] MEDS: Furosemide 20 MG/2 ML VIAL IVP SCH (17:05)
[2016-08-14] MEDS: Pantoprazole 40 MG VIAL IVP SCH (18:49)
--- NOTE | 2016-08-14 20:55 | Electrocardiograph Report ---
[facility] Test Date: 2016-08-13 Pat Name: Kj Avila Department: 103 Room: 2A47 Gender: M Blower Insulator: : 1965 Requested By: Order Number: [id number] Reading MD: Yi Keller Measurements Intervals [place] Rate: 94 P: 71 TN: 143 QRS: -37 QRSD: 103 T: 74 QT: 342 QTc: 394 Interpretive Statements SINUS RHYTHM POSSIBLE RIGHT ATRIAL ENLARGEMENT Electronically Signed On 08-14-2016 20:53:54 EST by Yi Keller
[2016-08-14 20:57] LABS: Hematocrit 29.8 % (37.5-50.1); Hemoglobin 9.9 g/dL (12.9-16.9)
[2016-08-15] MEDS: *HR* HYDROmorphone (PF) 1 MG/ML SYRINGE IVP PRN ×5 (02:10→10:55)
[2016-08-15] MEDS: D5% in 0.45% NACL 1,000 ML IVC SCH (02:11)
[2016-08-15 04:21] LABS: Hematocrit 29.5 % (37.5-50.1); Hemoglobin 9.9 g/dL (12.9-16.9); Mean Corpuscular HGB Conc 33.6 g/dL (31.6-35.5); Mean Corpuscular Hemoglobin 28.6 pg (28.0-33.3); Mean Corpuscular Volume 85.3 fL (83.0-100.0); Mean Platelet Volume 10.3 fL (9.4-12.4); Platelet Count 194 K/mcL (140-400); Red Blood Count 3.46 M/mcL (4.19-5.50); Red Cell Distribution Width 16.8 % (11.5-14.5)
[2016-08-15 04:41] LABS: BUN/Creatinine Ratio 37 (6-26); Blood Urea Nitrogen 22 mg/dL (8-26); Calcium 9.1 mg/dL (8.6-10.8); Carbon Dioxide 28 mEq/L (19-29); Chloride 96 mEq/L (98-109); Glucose 145 mg/dL (70-99); Osmolality,Calculated 284 (280-300); Potassium 3.5 mEq/L (3.5-4.5); Sodium 134 mEq/L (136-145); eGFR For African Americans > 60 (> 60); eGFR For Non-African Americans > 60 (> 60)
[2016-08-15] MEDS: Pantoprazole 40 MG VIAL IVP SCH (06:12)
[2016-08-15] MEDS: Furosemide 20 MG/2 ML VIAL IVP SCH (08:15)
[2016-08-15] MEDS: Nicotine 21 MG PATCH.TD24 TD SCH (08:15)
--- NOTE | 2016-08-15 09:43 | Discharge Summary ---
Date of Encounter: 08/15/16 Time of Encounter: 09:34 - Discharge Diagnosis (1) Acute GI bleeding Priority: Primary Status: Acute Comments: Acute blood loss anemia secondary to upper GI bleed/hematemesis, gastric / esophageal ulcers (2) Hematemesis without nausea Priority: Primary Status: Acute (3) Severe anemia Priority: Primary Status: Acute (4) Throat cancer Priority: Secondary Status: Acute (5) Head and neck cancer Priority: Secondary Status: Chronic (6) Oropharyngeal dysphagia Priority: Secondary Status: Acute (7) Protein-calorie malnutrition, severe Priority: Secondary Status: Acute (8) Weight loss Priority: Secondary Status: Acute (9) Tongue cancer Priority: Secondary Status: Chronic (10) Severe protein-calorie malnutrition Priority: Secondary Status: Acute - Discharge Medications Prescriptions: Ipratropium/Albuterol Neb [Duoneb] 3 ml IH Q6HR PRN #40 vial.neb PRN Reason: Shortness Of Breath OxyCODONE ER (12 HR) [OxyCONTIN] 40 mg PO Q8HR PRN #30 tab.er.12h PRN Reason: Pain Hydromorphone HCl [Dilaudid] 2 mg PO Q3H PRN #40 tablet PRN Reason: severe pain Omeprazole Magnesium [PriLOSEC] 40 mg PO BID 30 Days Pregabalin [Lyrica] 150 mg PO BID #60 capsule Sucralfate [Carafate] 1 gm PO QID 30 Days Home Medications: Lisinopril [Zestril] 10 mg PO BID 01/26/16 [History] Baclofen 20 mg PO TID 03/14/16 [History] Magic Mouthwash [Magic Mouthwash BLM] 10 ml PO QID PRN #240 ml 07/02/16 [Rx] Ondansetron HCl [Zofran] 4 mg PO BID PRN #60 tablet 07/03/16 [Rx] Prochlorperazine Maleate [Compazine] 10 mg PO Q8HR PRN #90 tablet 07/03/16 [Rx] Hydromorphone HCl [Dilaudid] 2 mg PO Q3H PRN #40 tablet 08/15/16 [Rx] Ipratropium/Albuterol Neb [Duoneb] 3 ml IH Q6HR PRN #40 vial.neb 02/01/17 [Rx] Omeprazole Magnesium [PriLOSEC] 40 mg PO BID 30 Days 08/15/16 [Rx] OxyCODONE ER (12 HR) [OxyCONTIN] 40 mg PO Q8HR PRN #30 tab.er.12h 08/15/16 [Rx] Pregabalin [Lyrica] 150 mg PO BID #60 capsule 08/15/16 [Rx] Sucralfate [Carafate] 1 gm PO QID 30 Days 08/15/16 [Rx] Allergies/Adverse Reactions: Allergies No Known Allergies Allergy (Verified 02/14/15 06:26) Date of admission: 08/13/16 14:05 Primary care physician: PCP OSMAN Consults: 08/13/16 14:23 Consult to Nutrition [CONS] Routine Comment: Consulting Provider: NUTRITION Reason for Dietary Consult: Supplemental Nutrition Other:: PEG tube, bolus feeds at home - Patient Status Disposition: Home Health Service Condition: Fair Overall status at discharge: patient is progressing back to baseline - Discharge Inst[facility] - Additional Instructions: Follow with primary care physician within the next 7 days. Continue omeprazole or lansoprazole twice a day ( hold tube feeds for an hour after administering PPI). Continue sucralfate and avoid NSAIDs. Follow-up with oncology as outpatient to continue palliative chemotherapy. - Diet and Activity Activity: increase activity as tolerated Diet: other (Tube feeds) Hospital course: Mr. 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 He started having copious amounts of bloody vomitus associated with nausea early this morning woke him up from sleep, denied any associated shortness of breath or abdominal pain. He also noted some bloody leakage around the PEG tube. He was evaluated in the emergency department and his hemoglobin was 4.9. The patient received 3 units of blood. Was evaluated by day GI service and an endoscopy was performed on 08/14/2016 which showed according to Dr. Macias ( final report not available, details were provided verbally by Dr. Macias) The patient was continued on Protonix IV, hemoglobin today is 9. No evidence of for further bleeding. It is recommended that a tube feeds are stopped for an hour when the patient is receiving a PPI through the PEG tube placement. The positive care service was consulted and recommended to consider hospice after completing palliative chemotherapy as outpatient. - Time Spent with Patient Total time spent providing and/or coordinating discharge services: Greater than 30 minutes (40 minutes) - Constitutional Vitals: Temp Pulse Resp BP Pulse Ox 97.9 F 70 16 149/83 90 L 08/15/16 06:46 08/15/16 06:46 08/15/16 06:46 08/15/16 06:46 08/15/16 08:38 General appearance: Present: cachectic, A&O X 3 - Head Head exam: Present: atraumatic, normocephalic - Eye Eye exam: Present: PERRL, conjuntiva pink, sclera anicteric Pupils: Present: PERRL - Neck Neck exam general surgery: Present: supple, trachea midline. Absent: lymphadenopathy - Respiratory Respiratory exam: Present: CTAB, rales (bibasilar fine crackles). Absent: accessory muscle use, rhonchi, wheezes - Cardiovascular Cardiovascular exam: Present: RRR, +S1, +S2. Absent: diastolic murmur, gallop, rubs, systolic murmur - GI/Abdominal GI/Abdominal exam: Present: normal bowel sounds, soft, no peritoneal signs. Absent: distended, tenderness Additional comments: PEG tube - Extremities Exam Extremities exam: Present: warm, radial pulses palpable and symetrical. Absent : calf tenderness, cyanotic, pedal edema - Neurological Exam Neurological exam: Present: CN II-XII intact, oriented X3, no focal deficits. Absent: pronater drift, facial droop, speech deficit Additional comments: Dysarthria due to prior hemiglossectomy - Skin Skin exam: Present: dry, intact
--- NOTE | 2016-08-15 09:56 | Palliative Progress Note ---
Date of Encounter: 08/15/16 Time of Encounter: 07:20 - Assessment and plan (1) Acute GI bleeding Current Visit: Yes Status: Acute Assessment and plan: This has stopped status post EGD. Report from the EGD is not yet back however the patient reports they did find bleeding and stopped it. (2) Anemia Current Visit: Yes Status: Acute Assessment and plan: Now stable after multiple units of transfusion and an EGD. The patient got a total of 4 units of blood. And hemoglobin was as low as 4.9. Qualifiers: Anemia type: other cause Other causes of anemia: acute posthemorrhagic Qualified Code(s): D62 - Acute posthemorrhagic anemia (3) Goals of care, counseling/discussion Current Visit: Yes Status: Acute Assessment and plan: The patient has done quite well with his chemotherapy, including working just last week. The patient is interested in hospice but only if he can continue his chemotherapy and at this time, this cannot be accommodated. Therefore the patient will continue his aggressive chemotherapy does know that hospice is available whenever the chemotherapy stops working for him or causes tolerable side effect. (4) Throat cancer Current Visit: Yes Status: Acute Assessment and plan: And is to continue aggressive cancer therapy. As this seems to be working pretty well for him. The patient does understand where hospice fits into the picture. - Time Spent With Patient Total time spent is greater than 50% in coordination of care (as documented) at patient's floor/unit and/or counseling patient: - Subjective Interval history: The patient is feeling stronger this morning he reports that they found the bleeding stopped it. Port from the EGD is not yet back. Patient states that his current medications are working well for his pain. - Constitutional Vitals: Abnormal lab results WBC 14.0 K/mcL (4.3-11.1) H 08/15/16 03:47 RBC 3.46 M/mcL (4.19-5.50) L 08/15/16 03:47 Hgb 9.9 g/dL (12.9-16.9) L 08/15/16 03:47 Hct 29.5 % (37.5-50.1) L 08/15/16 03:47 RDW 16.8 % (11.5-14.5) H 08/15/16 03:47 Neutrophils # 11.8 K/mcL (1.6-8.9) H 08/14/16 08:00 Lymphocytes # 0.3 K/mcL (0.6-4.6) L 08/14/16 08:00 PT 15.6 Seconds (9.4-12.1) H 08/13/16 08:14 Sodium 134 mEq/L (136-145) L 08/15/16 03:47 Chloride 96 mEq/L (98-109) L 08/15/16 03:47 Creatinine 0.60 mg/dL (0.72-1.25) L 08/15/16 03:47 BUN/Creatinine Ratio 37 (6-26) H 08/15/16 03:47 Glucose 145 mg/dL (70-99) H 08/15/16 03:47 Iron 257 mcg/dL (65-175) H 08/14/16 08:00 % Saturation 87 % (20-55) H 08/14/16 08:00 Ferritin 339 ng/ml (22-275) H 08/14/16 08:00 General appearance: Present: no acute distress - Head Head exam: Present: atraumatic, normal inspection - Eye Eye exam: Present: normal appearance - ENT ENT exam: Present: mucous membranes moist - Respiratory Respiratory exam: Present: decreased breath sounds, CTAB - Cardiovascular Cardiovascular exam: Present: RRR - GI/Abdominal GI/Abdominal exam: Present: normal bowel sounds, soft. Absent: tenderness - Extremities Exam Extremities exam: Present: normal inspection. Absent: pedal edema, tenderness - Neurological Exam Neurological exam: Present: alert, oriented X3 - Psychiatric Psychiatric exam: Present: normal affect, normal mood. Absent: agitated, anxious - Skin Skin exam: Present: dry, warm Palliative Quality Palliative Quality: Screen for Code Status: Yes, Screen for Goals of Care: Yes, Screen for Pain: Yes, If Pain Regimen Started, Initiate Bowel Regimen: Yes, Screen for Nausea/Vomitting: Yes - Labs CBC & Chem 7: 08/15/16 03:47 08/15/16 03:47 Labs: Laboratory Results - last 24 hr 08/14/16 08/15/16 08/15/16 20:36 03:47 03:47 WBC 14.0 H RBC 3.46 L Hgb 9.9 L 9.9 L Hct 29.8 L 29.5 L MCV 85.3 MCH 28.6 MCHC 33.6 RDW 16.8 H Plt Count 194 MPV 10.3 Sodium 134 L Potassium 3.5 Chloride 96 L Carbon Dioxide 28 BUN 22 D Creatinine 0.60 L Est GFR ( Amer) > 60 Est GFR (Non-Af Amer) > 60 BUN/Creatinine Ratio 37 H Glucose 145 H Calculated Osmolality 284 Calcium 9.1 - ABG Interpretation ABG results: PT/INR, D-dimer PT 15.6 Seconds (9.4-12.1) H 08/13/16 08:14 Consult Discharge Plan - Plan [facility]errals: [facility]Primary Care Provider[facility] - Prescriptions: Ipratropium/Albuterol Neb [Duoneb] 3 ml IH Q6HR PRN #40 vial.neb PRN Reason: Shortness Of Breath OxyCODONE ER (12 HR) [OxyCONTIN] 40 mg PO Q8HR PRN #30 tab.er.12h PRN Reason: Pain Hydromorphone HCl [Dilaudid] 2 mg PO Q3H PRN #40 tablet PRN Reason: severe pain Omeprazole Magnesium [PriLOSEC] 40 mg PO BID 30 Days Pregabalin [Lyrica] 150 mg PO BID #60 capsule Sucralfate [Carafate] 1 gm PO QID 30 Days
--- NOTE | 2016-08-15 10:10 | Physician Discharge Referral ---
Home Health/Hosp Referral Info Transfer to: Home Health Provider in Charge Post Discharge: PCP - Diagnosis (1) Acute GI bleeding Status: Acute (2) Hematemesis without nausea Status: Acute (3) Severe anemia Status: Acute (4) Throat cancer Status: Acute (5) Head and neck cancer Status: Chronic (6) Oropharyngeal dysphagia Status: Acute (7) Protein-calorie malnutrition, severe Status: Acute (8) Weight loss Status: Acute (9) Tongue cancer Status: Chronic (10) Severe protein-calorie malnutrition Status: Acute - Respiratory Orders Smoking Cessation: Smoking cessation has been advised. For more information, call the [place] [employer]uit Line at 3-941-PEBZNOW. - Diet/Nutrition Diet/Nutrition: List: tube feeds - Services Needed Following services are medically necessary services: Nursing, Home Health Aide Other Treatments: Follow with primary care physician within the next 7 days. Continue omeprazole or lansoprazole twice a day ( hold tube feeds for an hour after administering PPI). Continue sucralfate and avoid NSAIDs. Follow-up with oncology as outpatient to continue palliative chemotherapy. DNR CC arrest DNI - Transfer Medications Prescriptions: Ipratropium/Albuterol Neb [Duoneb] 3 ml IH Q6HR PRN #40 vial.neb PRN Reason: Shortness Of Breath OxyCODONE ER (12 HR) [OxyCONTIN] 40 mg PO Q8HR PRN #30 tab.er.12h PRN Reason: Pain Hydromorphone HCl [Dilaudid] 2 mg PO Q3H PRN #40 tablet PRN Reason: severe pain Omeprazole Magnesium [PriLOSEC] 40 mg PO BID 30 Days Pregabalin [Lyrica] 150 mg PO BID #60 capsule Sucralfate [Carafate] 1 gm PO QID 30 Days Home Medications: Lisinopril [Zestril] 10 mg PO BID 01/26/16 [History] Baclofen 20 mg PO TID 03/14/16 [History] Magic Mouthwash [Magic Mouthwash BLM] 10 ml PO QID PRN #240 ml 07/02/16 [Rx] Ondansetron HCl [Zofran] 4 mg PO BID PRN #60 tablet 07/03/16 [Rx] Prochlorperazine Maleate [Compazine] 10 mg PO Q8HR PRN #90 tablet 07/03/16 [Rx] Hydromorphone HCl [Dilaudid] 2 mg PO Q3H PRN #40 tablet 08/15/16 [Rx] Ipratropium/Albuterol Neb [Duoneb] 3 ml IH Q6HR PRN #40 vial.neb 08/15/16 [Rx] Omeprazole Magnesium [PriLOSEC] 40 mg PO BID 30 Days 08/15/16 [Rx] OxyCODONE ER (12 HR) [OxyCONTIN] 40 mg PO Q8HR PRN #30 tab.er.12h 08/15/16 [Rx] Pregabalin [Lyrica] 150 mg PO BID #60 capsule 08/15/16 [Rx] Sucralfate [Carafate] 1 gm PO QID 30 Days 08/15/16 [Rx] Allergies/Adverse Reactions: Allergies No Known Allergies Allergy (Verified 02/14/15 06:26) Certification: Further, I certify that my clinical findings support that this patient is homebound (i.e. absences from home require considerable and taxing effort and are for medical reasons or [employer] services or infrequently or short duration when for other reasons) because: Homebound Reason: Patient requires assistance of a person or device to safely leave home Attestation: My signature below is to certify that this patient is under my care and that I, or nurse practitioner, or a physician's law office assistant working with me, has a face-to -face encounter with this patient.
[2016-08-15 10:24] VITALS: BP 155/84
--- NOTE | 2016-08-15 10:56 | Gastroenterology Progress Note ---
<BangElder barrera Antonieta - Last Filed: 08/15/16 10:54> Date of Encounter: 08/15/16 Time of Encounter: 09:45 - Assessment and plan (1) Hematemesis without nausea Status: Acute Assessment and plan: Ulcer noted in the antrum. Recommend twice a day PPI via PEG tube. (2) Severe anemia Status: Acute Assessment and plan: Secondary to hematemesis. Hgb 9.9 this morning. (3) Head and neck cancer Status: Chronic - Time Spent With Patient Total time spent is greater than 50% in coordination of care (as documented) at patient's floor/unit and/or counseling patient: - Subjective Interval history: The patient reports feeling better today and denies any bleeding. EGD completed yesterday, ulcer noted in antrum. - Constitutional Vitals: Temp Pulse Resp BP Pulse Ox 98 F 92 18 155/84 92 L 08/15/16 10:23 08/15/16 10:23 08/15/16 10:23 08/15/16 10:23 08/15/16 10:23 General appearance: Present: cooperative, A&O X 3, no acute distress, answers questions appropriately - Head Head exam: Present: atraumatic, normocephalic - Eye Eye exam: Present: normal appearance, sclera anicteric - ENT Additional comments: s/p right hemiglossectomy and neck node dissection - Neck Neck exam general surgery: Present: normal inspection, trachea midline - Respiratory Respiratory exam: Present: CTAB. Absent: rales, rhonchi - Cardiovascular Cardiovascular exam: Present: RRR, +S1, +S2 - GI/Abdominal GI/Abdominal exam: Present: soft, no peritoneal signs. Absent: distended, firm , guarding, tenderness - Rectal Rectal exam: Present: deferred - Extremities Exam Extremities exam: Present: warm - Neurological Exam Neurological exam: Present: no focal deficits - Psychiatric Psychiatric exam: Present: normal affect, normal mood - Skin Skin exam: Present: dry, intact, normal color, warm Results - Labs CBC & Chem 7: 08/15/16 03:47 08/15/16 03:47 Labs: Last Result Calcium 9.1 mg/dL (8.6-10.8) 08/15/16 03:47 Iron 257 mcg/dL (65-175) H 08/14/16 08:00 % Saturation 87 % (20-55) H 08/14/16 08:00 Transferrin 211 mg/dL (174-364) 08/14/16 08:00 Ferritin 339 ng/ml (22-275) H 08/14/16 08:00 Entire Visit Hgb 9.9 g/dL (12.9-16.9) L 08/15/16 03:47 Hct 29.5 % (37.5-50.1) L 08/15/16 03:47 PT 15.6 Seconds (9.4-12.1) H 08/13/16 08:14 Ferritin 339 ng/ml (22-275) H 08/14/16 08:00 - ABG ABG results: PT/INR, D-dimer PT 15.6 Seconds (9.4-12.1) H 08/13/16 08:14 Consult Discharge Plan - Plan Additional Instructions: Follow with primary care physician within the next 7 days. Continue omeprazole or lansoprazole twice a day ( hold tube feeds for an hour after administering PPI). Continue sucralfate and avoid NSAIDs. Follow-up with oncology as outpatient to continue palliative chemotherapy. Referrals: Nicole Charles MD [Partnered Physician] - 08/22/16 3:20 pm (Please follow up as schedule...) [facility] - 08/21/16 11:15 am (please follow up as schedule...) Prescriptions: Ipratropium/Albuterol Neb [Duoneb] 3 ml IH Q6HR PRN #40 vial.neb PRN Reason: Shortness Of Breath OxyCODONE ER (12 HR) [OxyCONTIN] 40 mg PO Q8HR PRN #30 tab.er.12h PRN Reason: Pain Hydromorphone HCl [Dilaudid] 2 mg PO Q3H PRN #40 tablet PRN Reason: severe pain Omeprazole Magnesium [PriLOSEC] 40 mg PO BID 30 Days Pregabalin [Lyrica] 150 mg PO BID #60 capsule Sucralfate [Carafate] 1 gm PO QID 30 Days <Preeti Macias - Last Filed: 08/19/16 09:54> Date of Encounter: 08/15/16 Time of Encounter: 14:00 - Time Spent With Patient Total time spent is greater than 50% in coordination of care (as documented) at patient's floor/unit and/or counseling patient: - Constitutional Vitals: Temp Pulse Resp BP Pulse Ox 98 F 92 18 155/84 92 L 08/15/16 10:23 08/15/16 10:23 08/15/16 10:23 08/15/16 10:23 08/15/16 10:23 Results - Labs CBC & Chem 7: 08/15/16 03:47 08/15/16 03:47 Labs: Last Result Calcium 9.1 mg/dL (8.6-10.8) 08/15/16 03:47 Iron 257 mcg/dL (65-175) H 08/14/16 08:00 % Saturation 87 % (20-55) H 08/14/16 08:00 Transferrin 211 mg/dL (174-364) 08/14/16 08:00 Ferritin 339 ng/ml (22-275) H 08/14/16 08:00 Entire Visit Hgb 9.9 g/dL (12.9-16.9) L 08/15/16 03:47 Hct 29.5 % (37.5-50.1) L 08/15/16 03:47 PT 15.6 Seconds (9.4-12.1) H 08/13/16 08:14 Ferritin 339 ng/ml (22-275) H 08/14/16 08:00 - ABG ABG results: PT/INR, D-dimer PT 15.6 Seconds (9.4-12.1) H 08/13/16 08:14 - Attending Attestation I examined this patient and my medical decision-making was reviewed with the [employer]/PA/Advanced Practice Nurse/Resident Physician. I agree with the documented findings, disposition and treatment plan as described except to the extent set forth below.
--- NOTE | 2016-08-15 14:51 | Event Note ---
Date of Encounter: 08/15/16 Time of Encounter: 14:49 of note palliative care was called by ER to see patient in the emergency department. We saw patient in the er at teir request and followed the patient through his inpatient stay
== END 2016-08-15 14:35 | disposition home health service (06) | DRG 241 ==
LOC: EMEROO 07:44 → 2ANU 07:44 → SUATTDRO 14:05
PROVIDERS: ADMIT Internal Medicine; ATTEND Internal Medicine

== ENCOUNTER 2016-08-18 20:28 | Inpatient (IN) ==
[2016-08-18] MEDS ORDERED: *HR* FentaNYL (PF) 100 MCG/2 ML VIAL IVP ONE (21:07)
[2016-08-18] MEDS ORDERED: Pantoprazole 40 MG VIAL IVP ONE (21:07)
--- NOTE | 2016-08-18 21:09 | Emergency Department Note ---
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 He states that he has not had any bleeding episodes prior to that. He states that his stool was been normal and the light brown. He had an endoscopy 5 days ago performed by Dr. Macias. He denies anticoagulant use. He denies chest pain, fever, diaphoresis, change in urination or bowel movements, rashes or edema. - Related Data Home Medications Medication Instructions Recorded Confirmed Lisinopril [Zestril] 10 mg PO BID 01/26/16 08/13/16 Baclofen 20 mg PO TID 03/14/16 08/13/16 Previous Rx's Medication Instructions Recorded Magic Mouthwash [Magic Mouthwash 10 ml PO QID PRN #240 ml 07/02/16 BLM] Ondansetron HCl [Zofran] 4 mg PO BID PRN #60 tablet 07/03/16 Prochlorperazine Maleate 10 mg PO Q8HR PRN #90 tablet 07/03/16 [Compazine] Hydromorphone HCl [Dilaudid] 2 mg PO Q3H PRN #40 tablet 08/15/16 Ipratropium/Albuterol Neb [Duoneb] 3 ml IH Q6HR PRN #40 vial.neb 08/15/16 Omeprazole Magnesium [PriLOSEC] 40 mg PO BID 30 Days 08/15/16 OxyCODONE ER (12 HR) [OxyCONTIN] 40 mg PO Q8HR PRN #30 tab.er.12h 08/15/16 Pregabalin [Lyrica] 150 mg PO BID #60 capsule 08/15/16 Sucralfate [Carafate] 1 gm PO QID 30 Days 08/15/16 Allergies Allergy/AdvReac Type Severity Reaction Status Date / Time No Known Allergies Allergy Verified 02/14/15 06:26 All systems ED: reviewed and negative except as stated. Past Medical History - Past Medical History Attestation: Yes The following information was validated with the patient. Source: patient Medical history: Reports: cancer, hypertension Surgical history: Reports: herniorrhaphy (left inguinal), other (right hemiglossectomy and modified radical neck dissection) Psychiatric history: Reports: no psych history - Social History Smoking Status: Current every day smoker Smokeless Tobacco Status: No Alcohol use: Reports: occasionally Drug use: Reports: none Physical Exam - Head Head exam: atraumatic, normocephalic, normal inspection - Eye Eye exam: Present: normal appearance, PERRL, EOMI - ENT There is dried blood in the oropharynx and a portion of the tongue surgically removed. Oropharynx dry. Otherwise normal. - Neck Status post radical neck surgery. - Chest Chest inspection: Present: normal inspection, symmetric chest wall rise - Respiratory Respiratory exam: Clear to auscultation bilaterally without wheezes rales or rhonchi Cardiovascular Cardiovascular exam: Present: regular rate, normal rhythm, normal heart sounds - Abdominal Exam Soft, nontender. There is bloody fluid in the G-tube and around the G-tube. - Extremities Exam Extremities exam: Present: normal inspection, full ROM - Expanded Lower Extremity Exam Hip/Pelvis exam: Present: normal inspection, full ROM - Back Exam Back exam: Present: normal inspection, full ROM. Absent: tenderness, CVA tenderness (R), CVA tenderness (L) - Neurological Exam Neurological exam: Present: alert, oriented X3, CN II-XII intact - Psychiatric Psychiatric exam: Present: normal affect, normal mood - Skin Skin exam: Present: warm, dry, intact, normal color - General Limitations: altered mental status General appearance: alert Course - Reevaluation(s) Reevaluation #1: Nursing was unable to obtain adequate IV access, so I placed a right femoral CBC. This was placed due to patient's significant surgical history in the neck. She tolerated procedure well without come patients. Patient is hemodynamically stable this time with MAP of approximately 80 and heart rates in the 80s. Case was discussed with Dr. Macias. He will see the patient in consult. He requests that we place the patient on Protonix drip and give one unit of FFP in addition to the blood and vitamin K in addition to those. He is available to come in for emergent endoscopy if needed. Hospitalist paged for admission. Time: 22:55 Reevaluation #2: Accepted by [facility]ij[facility] to ICU. Time: 23:07 Vital Signs Temperature 97.8 F 08/18/16 20:32 Pulse Rate 107 08/18/16 20:32 Respiratory Rate 16 08/18/16 20:32 Blood Pressure 104/72 08/18/16 20:32 O2 Sat by Pulse Oximetry 97 08/18/16 20:32 Temperature 97.8 F 08/18/16 20:32 Pulse Rate 79 08/18/16 22:01 Respiratory Rate 16 08/18/16 22:01 Blood Pressure 109/66 08/18/16 22:01 O2 Sat by Pulse Oximetry 93 L 08/18/16 22:01 Oxygen Delivery Oxygen Delivery Room Air Procedures - Central Line Placement Right Femoral Central Line Inserted*: Yes Central Line Catheter Replacement*: No Central Line Insertion: emergent Consent Obtained: written consent Procedural Pause: verify patient name and date of , timeout performed per policy, janel and assess the site, assemble equipment and verify supplies, perform hand hygiene Patient Placed on Monitor/Pulse Ox: Yes During the Procedure: clinician is wearing sterile gloves, cap, mask,& gown during insertion, sterile field and sterile technique are maintained, patient's face is covered with drape or mask and wearing a cap, everyone in room is wearing a mask Central Line Prep: Chlorhexidine scrub Prep the Procedure Site: apply chloraprep to the skin using a back and forth scrubbing motion, apply chloraprep for 30 seconds (upper body), 1-2 min ( femoral sites), allow prep to dry, drape the patient with a full body drape Local Anesthetic: lidocaine 1% Amount of anesthesia used (mL): 3 Ultrasound Used for Placement: Yes Central Line Lumen Inserted: triple Post Procedure: sutured in place, good blood return, all ports aspirated, flushed, capped, sterile dressing applied, guide wire removed and visualized, dressing is dated Patient Tolerated Procedure: well, no complications Date: 08/18/16 Time: 22:56 GI Bleed - Medical Records Medical records reviewed: Yes I reviewed the patient's medical records. - Lab Data Lab results reviewed: Yes I reviewed the patient's lab results. Result diagrams: 08/18/16 21:31 08/18/16 21:31 Lab Results 08/18/16 08/18/16 08/18/16 Range/Units 21:31 21:31 21:31 WBC 6.0 D (4.3-11.1) K/mcL RBC 2.55 L (4.19-5.50) M/mcL Hgb 7.4 L D (12.9-16.9) g/dL Hct 22.4 L (37.5-50.1) % MCV 87.8 (83.0-100.0) fL MCH 29.0 (28.0-33.3) pg MCHC 33.0 (31.6-35.5) g/dL RDW 16.2 H (11.5-14.5) % Plt Count 223 (140-400) K/mcL MPV 9.8 (9.4-12.4) fL Seg Neutrophils % 36.0 % Band Neutrophils % 54.0 H (0-4) % Lymphocytes % 6.0 % Monocytes % 4.0 % Neutrophils # 5.4 (1.6-8.9) K/mcL Lymphocytes # 0.4 L (0.6-4.6) K/mcL Monocytes # 0.2 (0.0-1.3) K/mcL Platelet Estimate Normal (Normal) Anisocytosis 1+ A (Not Present) PT 15.9 H (9.4-12.1) Seconds INR 1.5 Sodium 135 L (136-145) mEq/L Potassium 3.7 (3.5-4.5) mEq/L Chloride 93 L (98-109) mEq/L Carbon Dioxide 30 H (19-29) mEq/L BUN 60 H (8-26) mg/dL Creatinine 1.22 (0.72-1.25) mg/dL Est GFR ( Amer) > 60 (> 60) Est GFR (Non-Af Amer) > 60 (> 60) BUN/Creatinine Ratio 49 H (6-26) Glucose 125 H (70-99) mg/dL Calculated Osmolality 298 (280-300) Calcium 9.8 (8.6-10.8) mg/dL Total Bilirubin 0.5 (0.2-1.2) mg/dL Direct Bilirubin 0.2 (0.0-0.5) mg/dL Indirect Bilirubin 0.3 (0.0-1.2) mg/dL AST 11 (5-34) Units/L ALT 13 (0-55) Units/L Alkaline Phosphatase 58 (38-126) Units/L Troponin I (0-0.03) ng/mL Serum Total Protein 6.8 (6.0-8.3) g/dL Albumin 2.4 L (3.5-5.0) g/dL Globulin 4.4 H (2.4-3.5) g/dL Albumin/Globulin Ratio 0.5 L (1.1-2.2) Blood Type Antibody Screen Crossmatch 08/18/16 08/18/16 Range/Units 21:31 21:31 WBC (4.3-11.1) K/mcL RBC (4.19-5.50) M/mcL Hgb (12.9-16.9) g/dL Hct (37.5-50.1) % MCV (83.0-100.0) fL MCH (28.0-33.3) pg MCHC (31.6-35.5) g/dL RDW (11.5-14.5) % Plt Count (140-400) K/mcL MPV (9.4-12.4) fL Seg Neutrophils % % Band Neutrophils % (0-4) % Lymphocytes % % Monocytes % % Neutrophils # (1.6-8.9) K/mcL Lymphocytes # (0.6-4.6) K/mcL Monocytes # (0.0-1.3) K/mcL Platelet Estimate (Normal) Anisocytosis (Not Present) PT (9.4-12.1) Seconds INR Sodium (136-145) mEq/L Potassium (3.5-4.5) mEq/L Chloride (98-109) mEq/L Carbon Dioxide (19-29) mEq/L BUN (8-26) mg/dL Creatinine (0.72-1.25) mg/dL Est GFR ( Amer) (> 60) Est GFR (Non-Af Amer) (> 60) BUN/Creatinine Ratio (6-26) Glucose (70-99) mg/dL Calculated Osmolality (280-300) Calcium (8.6-10.8) mg/dL Total Bilirubin (0.2-1.2) mg/dL Direct Bilirubin (0.0-0.5) mg/dL Indirect Bilirubin (0.0-1.2) mg/dL AST (5-34) Units/L ALT (0-55) Units/L Alkaline Phosphatase (38-126) Units/L Troponin I 0.01 (0-0.03) ng/mL Serum Total Protein (6.0-8.3) g/dL Albumin (3.5-5.0) g/dL Globulin (2.4-3.5) g/dL Albumin/Globulin Ratio (1.1-2.2) Blood Type A POSITIVE Antibody Screen NEGATIVE Crossmatch See Detail - EKG Data EKG attestation: Yes I reviewed and interpreted this EKG. EKG shows normal: sinus rhythm Interpretation: no acute changes Critical Care Time Critical Care Time: Yes Total Critical Care Time: 40 Attestation: Critical care performed: Time is exclusive of separately billable procedures. Time includes: direct patient care, patient reassessment, coordination of patient care, interpretation of data (laboratory data, radiology data, and respiratory data), review of patient's medical records, medical consultation and documentation of patient care. Procedures included in critical care time: Procedures excluded from critical care time: Right femoral central line placement Attestation Statement - Attestation Attestation: I, Sandeep Chowdary MD, personally performed a history and physical exam of the patient and discussed their management with the resident. I reviewed the resident's note and agree with the documented findings, medical decision making , and plan of care. 50-year-old male presents to the emergency department with complaint of upper GI bleed for 2 days prior to arrival. Patient was admitted about 5 days ago for the same symptoms. His hemoglobin was down to 4.9 and he received 5 units of blood. He had an upper endoscopy by stripper machine operator and family reports that they cauterized to ulcers. He started to have some bloody drainage from his G-tube yesterday and today he has been actually vomiting blood. On examination patient is a well-developed thin male who appears much older than his actual age. He is alert and oriented 3. There is no cyanosis or diaphoresis. He does appear slightly pale. Breath sounds are decreased but equal bilaterally. Heart regular rate and rhythm. Abdomen soft with increased bowel sounds. There is a G-tube in the epigastric area with blood around the G- tube. Labs reviewed. A right femoral central line was placed. The emergency department by Dr. Pollard under my supervision. Dr. Pollard discussed the case with the stripper machine operator, Dr. Macias. The hospitalist, Dr. Linares, was consulted and accepted admission of the patient.
[2016-08-18] MEDS ORDERED: Ondansetron 4 MG/2 ML VIAL IVP ONE (21:34)
[2016-08-18 21:41] LABS: Hematocrit 22.4 % (37.5-50.1); Mean Corpuscular Volume 87.8 fL (83.0-100.0); Mean Platelet Volume 9.8 fL (9.4-12.4); Platelet Count 223 K/mcL (140-400); Red Blood Count 2.55 M/mcL (4.19-5.50); Red Cell Distribution Width 16.2 % (11.5-14.5)
[2016-08-18 21:47] LABS: INR 1.5; Prothrombin Time 15.9 Seconds (9.4-12.1)
[2016-08-18 21:56] LABS: Alanine Aminotransferase 13 Units/L (0-55); Albumin 2.4 g/dL (3.5-5.0); Albumin/Globulin Ratio 0.5 (1.1-2.2); Alkaline Phosphatase 58 Units/L (38-126); Aspartate Amino Transferase 11 Units/L (5-34); BUN/Creatinine Ratio 49 (6-26); Bilirubin,Direct 0.2 mg/dL (0.0-0.5); Bilirubin,Indirect 0.3 mg/dL (0.0-1.2); Bilirubin,Total 0.5 mg/dL (0.2-1.2); Blood Urea Nitrogen 60 mg/dL (8-26); Calcium 9.8 mg/dL (8.6-10.8); Carbon Dioxide 30 mEq/L (19-29); Chloride 93 mEq/L (98-109); Globulin 4.4 g/dL (2.4-3.5); Glucose 125 mg/dL (70-99); Osmolality,Calculated 298 (280-300); Potassium 3.7 mEq/L (3.5-4.5); Sodium 135 mEq/L (136-145); Total Protein 6.8 g/dL (6.0-8.3); eGFR For African Americans > 60 (> 60); eGFR For Non-African Americans > 60 (> 60)
[2016-08-18 21:59] LABS: Hemoglobin 7.4 g/dL (12.9-16.9)
[2016-08-18 22:05] LABS: Lymphocytes # 0.4 K/mcL (0.6-4.6); Monocytes # 0.2 K/mcL (0.0-1.3); Neutrophils # 5.4 K/mcL (1.6-8.9)
[2016-08-18 22:06] LABS: Anisocytosis 1+ (Not Present)
[2016-08-18 22:07] LABS: Platelet Estimate Normal (Normal)
[2016-08-18] MEDS ORDERED: *HR* Phytonadione 10 MG/ML AMPUL SQ ONE (22:41)
[2016-08-18] MEDS ORDERED: 0.9 % Sodium Chloride 250 ML ONE (23:04)
[2016-08-18] MEDS ORDERED: MetroNIDAZOLE 500 MG/100 ML 500 MG/100 ML BAG IVPB ONE (23:06)
[2016-08-18] MEDS ORDERED: Piperacillin/Tazobactam 3.375 GM in D5% in Water (Mini-Bag+) 100 ML IVPB ONE (23:06)
[2016-08-18] MEDS ORDERED: Acetaminophen 650 MG RECTAL SUPP RC PRN (23:24)
[2016-08-18] MEDS ORDERED: Metoclopramide 10 MG/2 ML VIAL IVP STA (23:24)
[2016-08-18] MEDS ORDERED: Ondansetron 4 MG/2 ML VIAL IVP PRN (23:24)
[2016-08-18] MEDS ORDERED: Pantoprazole 40 MG VIAL IVPB STA (23:24)
[2016-08-18] MEDS ORDERED: Octreotide 50 MCG/ML SYRINGE IVP STA (23:24)
[2016-08-18] MEDS ORDERED: Octreotide 400 MCG in 0.9 % Sodium Chloride 100 ML IVC SCH (23:24)
[2016-08-18] MEDS ORDERED: *HR* LORazepam 2 MG/ML VIAL IVP PRN (23:24)
[2016-08-18] MEDS ORDERED: Acetaminophen 325 MG TABLET PO PRN (23:24)
[2016-08-18] MEDS ORDERED: Naloxone 0.4 MG/ML INJ IVP PRN (23:24)
--- NOTE | 2016-08-18 23:52 | Internal Med History&Physical ---
Date of Encounter: 08/18/16 Time of Encounter: 23:00 Assessment and Plan (1) Acute blood loss anemia Status: Acute . (2) Bandemia without diagnosis of specific infection Status: Acute . (3) Gonzalez's esophagus Status: Acute . Qualifiers: Gonzalez's esophagus type: with dysplasia of unspecified degree Qualified Code(s): K22.719 - Gonzalez's esophagus with dysplasia, unspecified; K22.71 - Gonzalez's esophagus with dysplasia (4) Gastric ulcer Status: Chronic . Qualifiers: Gastric ulcer chronicity: acute Gastric ulcer complication status: unspecified whether hemorrhage or perforation present Qualified Code(s): K25.3 - Acute gastric ulcer without hemorrhage or perforation (5) Esophagitis determined by endoscopy Status: Acute . (6) Malignant cachexia Status: Chronic . (7) Cancer-related pain Status: Chronic . (8) Upper gastrointestinal hemorrhage Status: Acute . (9) Dehydration Status: Acute . (10) Hematemesis without nausea Status: Acute . (11) Hyponatremia Status: Acute . (12) Severe protein-calorie malnutrition Status: Acute . (13) Tobacco abuse disorder Status: Chronic . (14) Head and neck cancer Status: Chronic . Internal Medicine - H&P: HPI Chief complaint: Vomiting blood. Admitted From: Emergency Dept Plans for Post Hospital Care: Home History of present illness: Mr. Avila is a 50 year old male [facility] patient with history significant for head and neck cancer/recurrent right tongue squamous cell carcinoma status post excision/right hemiglossectomy/right neck dissection was chemotherapy and adjuvant radiation therapy, hypertension, GERD/hiatal hernia/Gonzalez's esophagus , gastric ulcer/erosive esophagitis/UGI bleed, anemia of chronic disease, RAD, cachexia malignancy/failure to thrive/PEG tube dependent, cancer related pain syndrome, severe protein caloric malnutrition ,alcohol dependency, nicotine dependency The patient was visited and interviewed and examined. Patient is admitted to [facility] via the emergency department with concern Pertaining to Possible Upper Gastrointestinal Bleed. Patient's History Is Notable for a Neck Cancer Status Post Radical Surgical Intervention and Atrovent Chemoradiation Therapy. Bleeding at the G-Tube Placement and observed for quite some time. However patient reported an episode of hematemesis today and presented to the emergency room. This accompanied his generalized weakness he has capability and shortness of breath. He experienced episodes of similar hematemesis with acute blood loss anemia (hgb 4.9) requiring transfusion therapy 2units PRBC August 13 (goal hgb >7.0). An endoscopy was performed 5 days prior to this presentation which did not disclose an actively bleeding site. (EGD= friable, spontaneous bleeding mucosa in the distal esophagus treated with argon plasma coagulation. Nonbleeding gastric ulcer with no stigmata of bleeding. Gonzalez's Esophagus. Medium sized hiatal hernia.) He has not been on any ongoing chronic anticoagulation. Stools normal in formation and color. No reports of chest pain fever or diaphoresis change in urination or bowel habits cutaneous rashes syncopal presyncopal complaints unilateral weakness or slurred speech or edema. Findings in the ED: Temperature 97.8 pulse 79-107 respiration 16 BP 100-109/66- 72. O2 saturation 93-97% room air. WBC 6 hemoglobin 7.4 hematocrit 22.4. RDW 16.2. Platelets 223,000. Band neutrophils 54%. PT 15.9 INR 1.5 metabolic panel sodium 135 chloride 93. Carbon dioxide 30. BUN 16 creatinine 1.2. Glucose 125 osmolality 298. Albumin 2.4 total 6.8. Troponin 0.01. EKG sinus rhythm with no acute ischemic changes. Preliminary impression suggest continued Cumulative laboratory and radiographic data base was reviewed, considered and discussed. Pertinent ancillary medical records including ECW and PCI documentation was reviewed and considered. Given the patient's presenting concerns, past medical history, clinical findings and symptoms, he is admitted at this time will undergo further evaluation and disposition. Orders were written as per the computerized physician customer order clerk system.......................................................................... .................... Consultative opinions will be sought as clinical circumstances justify. Initial consult has been requested of gastroenterology/endoscopist. Pain management needs will be addressed. Laboratory and radiographic data base will be updated as appropriate. Studies include: gastrooccult, hemoccult, PT/INR/APTT, cardiac injury panel, BNP, type and screen, metabolic and hematologic panel, magnesium, phosphorus, ionized calcium, thyroid panel, lipid profile, A1c, C-peptide, CRP sed rate, blood gas, lactic acid, UA, UDS, ETOH, serologies, etc. Precautions: Aspiration, fall, delirium protocol/surveillance initiated. Telemetry with continuous hemodynamic monitoring and pulse oximetry initiated. Empiric antibiotic coverage: pending diagnostic/culture data. Special studies: CT chest/abd/pelvis, chest x-ray, telemetry, EKG. Pulmonary toilet: Incentive spirometry. Aerosol bronchodilator, mucolytic, antitussivePRN. Supplemental oxygen. Corticosteroid therapy. CPAP/BiPAP supplemental oxygen deliveryPRN.. Aerosol Mucomyst therapyPRN. Fluid and electrolyte repletion efforts will proceed. Careful attention to fluid balance and renal recovery will be emphasized. Avoidance of nephrotoxic exposure and adverse drug drug interaction in the setting of impaired renal function will be monitored closely. Acute coronary syndrome protocol/surveillance initiated. DVT and PUD prophylaxis initiated: PPI therapy, intermittent pneumatic cuffs/ TEDs. Subcutaneous heparin was held due to active bleeding. Early ambulation will be encouraged. Immunization updates recommended. Influenza and pneumococcal vaccinations as part of ongoing preventative healthcare recommendations strongly recommended. Smoking cessation counseling briefly addressed. Patient accepts nicotine substitution during this admission. Alcohol withdrawal/detoxification protocol/surveillance initiated. CIWA/SAS guidelines. Advanced care directive discussion briefly addressed. Patient does not declare any healthcare restrictions at this time. Cardiovascular risk appraisal and cardiovascular risk reduction efforts will be emphasized. Physical and occupational therapy may be consulted to evaluate/assess patient's functional capacity and progress mobility as circumstances permit. Nutrition/dietary education counseling may be considered as circumstances justify. Outpatient medication schedules will be reviewed, confirmed and facilitated as appropriate. Reconciliation of home treatments including adjustments, substitutions and reintroduction into the treatment regimen will address necessary maintenance therapies for chronic pre-existing medical conditions. Plan of care has been reviewed and discussed in detail with the patient. Questions addressed. Hospital course dictated by clinical findings, treatment response and potential consultative interventions. Patient is at risk for further acute clinical decline and morbidity due to presenting chief complaints and comorbid conditions. Condition is serious. Prognosis is guarded. CODE STATUS is full. Past Med Surg Social Fam HX - Past Medical History Source: old records reviewed Medical history: arthritis, cancer (Head and neck carcinoma with recurring right tongue squamous cell carcinoma. Status post right hemiglossectomy and right neck dissection December 2014. Additional diagnoses right tongue squamous cell carcinoma excision March 2014. May 2016 CT of the neck PET scan shows disease recurrence.), COPD, GERD, GI bleed (Gonzalez's esophagus. Gastric ulcer. Moderate hiatal hernia. Erosive esophagitis.), hypertension, malignancy (Head and neck carcinoma status post cisplatin/PELOTA MAKER adjuvant therapy, status post carbotaxol therapy,), osteoporosis, other (Cachexia of malignancy. Cancer-related pain.) Psychiatric history: no psych history, other - Past Surgical History Surgical History: cancer surgery (Recurrent right tongue squamous cell carcinoma status post right hemicolectomy glossectomy, right neck dissection . Additional right lung squamous cell carcinoma excision March 2014.), herniorrhaphy (left inguinal), other (PEG tube placement. Esophagogastroduodenoscopy.) - Social History Smoking Status: Current every day smoker Packs per day: >1+ppd Smokeless Tobacco Status: No Alcohol use: occasionally (daily) Drug use: none Occupational status: employed Current living situation: With Family Activity Level: Independent ambulation, Mostly sedentary Recent Out of Country Travel Within the Last 8 Weeks: No Exposure or Possible Exposure to Illness During Travel: No - Family History Father Living Status: Mother Living Status: Hx Family Cancer: Yes (throat) Hx Family Endocrine Disorder: Yes Internal Medicine - H&P: Meds Lisinopril [Zestril] 10 mg PO DAILY 01/26/16 [History] Baclofen 20 mg PO TID 03/14/16 [History] Ondansetron HCl [Zofran] 4 mg PO BID PRN #60 tablet 07/03/16 [Rx] Prochlorperazine Maleate [Compazine] 10 mg PO Q8HR PRN #90 tablet 07/03/16 [Rx] Pregabalin [Lyrica] 150 mg PO BID #60 capsule 08/15/16 [Rx] Oxycodone HCl [OxyCODONE Oral Soln] 20 mg PO Q4H PRN #3600 ml 08/27/16 [Rx] Pregabalin [Lyrica] 150 mg PO BID #60 capsule 08/27/16 [Rx] Cephalexin [Keflex Susp] 500 mg PO Q8H #10 bottle 08/31/16 [Rx] Cephalexin [Keflex] 500 mg PO TID #30 capsule 08/31/16 [Rx] OxyCODONE/APAP 5/325 [Percocet 5/325 MG] 1 tab PO Q6HR PRN #120 tablet 08/31/16 [Rx] Allergies No Known Allergies Allergy (Verified 02/14/15 06:26) All Systems PM: A 10-system review of systems was performed and is negative for pertinent findings except as documented above in the HPI. - Constitutional Constitutional: as per HPI, fatigue, malaise, no chills, no fever(s), no night sweats - EENT Eyes: as per HPI, no change in vision, no discharge, no pain, no photophobia Ears: as per HPI, no ear discharge, no ear pain, no tinnitus Nose, mouth and throat: as per HPI, other, no dysphagia, no nasal discharge, no neck pain, no sore throat - Cardiovascular Cardiovascular ROS IM: as per HPI, no chest pain, no diaphoresis, no dyspnea, no lightheadedness, no palpitations, no syncope - Respiratory Respiratory: as per HPI, no cough, no dyspnea, no wheezing, no excessive phlegm production - Gastrointestinal Gastrointestinal: as per HPI, bloating, change in stool character, coffee ground emesis, cramping, hematemesis, nausea, vomiting, other (Peg tube site bleeding, chronic recurrent.), no abdominal pain, no diarrhea, no hematochezia, no melena - Genitourinary Genitourinary ROS male: as per HPI - Musculoskeletal Musculoskeletal ROS IM: as per HPI, no numbness, no tingling - Integumentary Integumentary IM: as per HPI, no rash, no unusual bruising - Neurological Neurological ROS: as per HPI, no confusion, no convulsions, no focal weakness, no numbness, no tingling, no tremor(s) - Psychiatric Psychiatric: as per HPI - Endocrine Endocrine IM: as per HPI, fatigue - Hematologic/Lymphatic Hematologic/Lymphatic: as per HPI, no easy bruising - Allergic/Immunologic Allergic/Immunologic: as per HPI - Constitutional Vitals: Temp Pulse Resp BP Pulse Ox 97.0 F L 85 16 100/67 93 L 08/18/16 23:16 08/18/16 23:16 08/18/16 23:16 08/18/16 23:16 08/18/16 22:01 General appearance: Present: cachectic, cooperative, disheveled, mild distress, A&O X 3, underweight, loss of weight, answers questions appropriately - Head Head exam: Present: atraumatic, normocephalic - Eye Eye exam: Present: EOMI, PERRL, conjuntiva pink, sclera anicteric Pupils: Present: normal accommodation, PERRL - ENT ENT exam: Present: mucous membranes dry, normal external ear exam, normal oropharynx - Neck Neck exam general surgery: Present: full ROM, supple, trachea midline. Absent: lymphadenopathy, tenderness, nuchal rigidity - Respiratory Respiratory exam: Present: decreased breath sounds, prolonged expiratory phase, rhonchi, wheezes. Absent: accessory muscle use, rales - Cardiovascular Cardiovascular exam: Present: distant heart sounds, RRR, +S1, +S2. Absent: diastolic murmur, gallop, rubs, systolic murmur - GI/Abdominal GI/Abdominal exam: Present: normal bowel sounds, soft, no peritoneal signs. Absent: distended, tenderness - Extremities Exam Extremities exam: Present: full ROM, warm, radial pulses palpable and symetrical. Absent: calf tenderness, cyanotic, pedal edema - Neurological Exam Neurological exam: Present: alert, CN II-XII intact, oriented X3, no focal deficits. Absent: pronater drift, facial droop, speech deficit - Expanded Neurological Exam Neurological exam expanded: Present: protecting the airway. Absent: expressive aphasia, receptive aphasia Patient oriented to: Present: person, place, time Speech: Present: garbled Coma Scale Eye Opening: Spontaneous Coma Scale Motor Response: Obeys Commands Coma Scale Verbal Response: Oriented Coma Scale Total: 15 - Psychiatric Psychiatric exam: Present: normal affect, normal mood - Skin Skin exam: Present: dry, intact, warm. Absent: petechiae, rash, urticaria, vesicles Internal Med - H&P Results - Labs CBC & Chem 7: 08/21/16 04:43 08/21/16 04:43 - Impressions Vital Signs Temp Pulse Resp BP Pulse Ox 08/18/16 23:16 97.0 F L 85 16 100/67 08/18/16 22:01 79 16 109/66 93 L 08/18/16 20:32 97.8 F 107 16 104/72 97 Intake and Output 08/18/16 08/18/16 08/18/16 07:59 15:59 23:59 Intake Total 0 / 0 Balance 0 / 0 Intake: Blood Product 0 / 0 Rbcs Leuko Poor As-1 0 / 0 Unit [id number] Other: Weight 47.174 kg Patient Weight 08/18/16 23:59 Weight 47.174 kg Short CBC 08/18/16 Range/Units 21:31 WBC 6.0 D (4.3-11.1) K/mcL Hgb 7.4 L D (12.9-16.9) g/dL Hct 22.4 L (37.5-50.1) % Plt Count 223 (140-400) K/mcL Neutrophils # 5.4 (1.6-8.9) K/mcL BMP 08/18/16 Range/Units 21:31 Sodium 135 L (136-145) mEq/L Potassium 3.7 (3.5-4.5) mEq/L Chloride 93 L (98-109) mEq/L Carbon Dioxide 30 H (19-29) mEq/L BUN 60 H (8-26) mg/dL Creatinine 1.22 (0.72-1.25) mg/dL Glucose 125 H (70-99) mg/dL Calcium 9.8 (8.6-10.8) mg/dL Cardiac Enzymes 08/18/16 Range/Units 21:31 Troponin I 0.01 (0-0.03) ng/mL Liver Function 08/18/16 Range/Units 21:31 Total Bilirubin 0.5 (0.2-1.2) mg/dL Direct Bilirubin 0.2 (0.0-0.5) mg/dL AST 11 (5-34) Units/L ALT 13 (0-55) Units/L Alkaline Phosphatase 58 (38-126) Units/L Albumin 2.4 L (3.5-5.0) g/dL Abnormal lab results RBC 2.55 M/mcL (4.19-5.50) L 08/18/16 21:31 Hgb 7.4 g/dL (12.9-16.9) L D 08/18/16 21:31 Hct 22.4 % (37.5-50.1) L 08/18/16 21:31 RDW 16.2 % (11.5-14.5) H 08/18/16 21:31 Band Neutrophils % 54.0 % (0-4) H 08/18/16 21:31 Lymphocytes # 0.4 K/mcL (0.6-4.6) L 08/18/16 21:31 Anisocytosis 1+ (Not Present) A 08/18/16 21:31 PT 15.9 Seconds (9.4-12.1) H 08/18/16 21:31 Sodium 135 mEq/L (136-145) L 08/18/16 21:31 Chloride 93 mEq/L (98-109) L 08/18/16 21:31 Carbon Dioxide 30 mEq/L (19-29) H 08/18/16 21:31 BUN 60 mg/dL (8-26) H 08/18/16 21:31 BUN/Creatinine Ratio 49 (6-26) H 08/18/16 21:31 Glucose 125 mg/dL (70-99) H 08/18/16 21:31 Albumin 2.4 g/dL (3.5-5.0) L 08/18/16 21:31 Globulin 4.4 g/dL (2.4-3.5) H 08/18/16 21:31 Albumin/Globulin Ratio 0.5 (1.1-2.2) L 08/18/16 21:31 Allergies Allergy/AdvReac Type Severity Reaction Status Date / Time No Known Allergies Allergy Verified 02/14/15 06:26 Laboratory Results WBC 6.0 K/mcL (4.3-11.1) D 08/18/16 21:31 RBC 2.55 M/mcL (4.19-5.50) L 08/18/16 21:31 Hgb 7.4 g/dL (12.9-16.9) L D 08/18/16 21:31 Hct 22.4 % (37.5-50.1) L 08/18/16 21:31 MCV 87.8 fL (83.0-100.0) 08/18/16 21:31 MCH 29.0 pg (28.0-33.3) 08/18/16 21:31 MCHC 33.0 g/dL (31.6-35.5) 08/18/16 21:31 RDW 16.2 % (11.5-14.5) H 08/18/16 21:31 Plt Count 223 K/mcL (140-400) 08/18/16 21:31 MPV 9.8 fL (9.4-12.4) 08/18/16 21:31 Seg Neutrophils % 36.0 % 08/18/16 21:31 Band Neutrophils % 54.0 % (0-4) H 08/18/16 21:31 Lymphocytes % 6.0 % 08/18/16 21:31 Monocytes % 4.0 % 08/18/16 21:31 Neutrophils # 5.4 K/mcL (1.6-8.9) 08/18/16 21:31 Lymphocytes # 0.4 K/mcL (0.6-4.6) L 08/18/16 21:31 Monocytes # 0.2 K/mcL (0.0-1.3) 08/18/16 21:31 Platelet Estimate Normal (Normal) 08/18/16 21:31 Anisocytosis 1+ (Not Present) A 08/18/16 21:31 PT 15.9 Seconds (9.4-12.1) H 08/18/16 21:31 INR 1.5 08/18/16 21:31 Sodium 135 mEq/L (136-145) L 08/18/16 21:31 Potassium 3.7 mEq/L (3.5-4.5) 08/18/16 21:31 Chloride 93 mEq/L (98-109) L 08/18/16 21:31 Carbon Dioxide 30 mEq/L (19-29) H 08/18/16 21:31 BUN 60 mg/dL (8-26) H 08/18/16 21:31 Creatinine 1.22 mg/dL (0.72-1.25) 08/18/16 21:31 Est GFR ( Amer) > 60 (> 60) 08/18/16 21:31 Est GFR (Non-Af Amer) > 60 (> 60) 08/18/16 21:31 BUN/Creatinine Ratio 49 (6-26) H 08/18/16 21:31 Glucose 125 mg/dL (70-99) H 08/18/16 21:31 Calculated Osmolality 298 (280-300) 08/18/16 21:31 Calcium 9.8 mg/dL (8.6-10.8) 08/18/16 21:31 Total Bilirubin 0.5 mg/dL (0.2-1.2) 08/18/16 21:31 Direct Bilirubin 0.2 mg/dL (0.0-0.5) 08/18/16 21:31 Indirect Bilirubin 0.3 mg/dL (0.0-1.2) 08/18/16 21:31 AST 11 Units/L (5-34) 08/18/16 21:31 ALT 13 Units/L (0-55) 08/18/16 21:31 Alkaline Phosphatase 58 Units/L (38-126) 08/18/16 21:31 Troponin I 0.01 ng/mL (0-0.03) 08/18/16 21:31 Serum Total Protein 6.8 g/dL (6.0-8.3) 08/18/16 21:31 Albumin 2.4 g/dL (3.5-5.0) L 08/18/16 21:31 Globulin 4.4 g/dL (2.4-3.5) H 08/18/16 21:31 Albumin/Globulin Ratio 0.5 (1.1-2.2) L 08/18/16 21:31 Blood Type A POSITIVE 08/18/16 21:31 Antibody Screen NEGATIVE 08/18/16 21:31 Crossmatch See Detail 08/18/16 21:31 Brain MRI 08/19/16 18:41 IMPRESSION: No acute intracranial abnormality. No mass lesion or abnormal intracranial enhancement to suggest intracranial metastasis. The low-attenuation area in the right parietal lobe on the prior CT is likely related to artifacts. Mild parenchymal volume loss. Mild chronic microvascular disease. D/ / Srikanth Danielle MD / Srikanth Danielle MD Interpreting Provider: Srikanth Danielle MD
[2016-08-18] MEDS: Pantoprazole 40 MG in 0.9 % Sodium Chloride Mini Bag 100 ML IVC SCH (23:58)
[2016-08-19] MEDS: 0.9 % Sodium Chloride 1,000 ML IVC SCH ×5 (01:02→23:26)
[2016-08-19] MEDS: *HR* HYDROmorphone (PF) 1 MG/ML SYRINGE IVP PRN ×6 (02:05→23:27)
[2016-08-19] MEDS: Nicotine 21 MG PATCH.TD24 TD SCH ×2 (02:07→07:56)
[2016-08-19 03:55] LABS: Hematocrit 28.8 % (37.5-50.1); Hemoglobin 9.4 g/dL (12.9-16.9); Mean Corpuscular HGB Conc 32.6 g/dL (31.6-35.5); Mean Corpuscular Hemoglobin 28.9 pg (28.0-33.3); Mean Corpuscular Volume 88.6 fL (83.0-100.0); Mean Platelet Volume 10.4 fL (9.4-12.4); Platelet Count 275 K/mcL (140-400); Red Blood Count 3.25 M/mcL (4.19-5.50); Red Cell Distribution Width 15.2 % (11.5-14.5); VBG HCO3 34.7 mEq/L (21-27); VBG PH 7.31 pH Units (7.32-7.42)
[2016-08-19] MEDS: Pantoprazole 40 MG in 0.9 % Sodium Chloride Mini Bag 100 ML IVC SCH ×5 (04:02→23:27)
[2016-08-19] MEDS: *HR* OxyCODONE Immed Rel 5 MG TABLET PO PRN ×2 (04:02→08:09)
[2016-08-19 04:09] LABS: BUN/Creatinine Ratio 58 (6-26); Blood Urea Nitrogen 53 mg/dL (8-26); Calcium 9.5 mg/dL (8.6-10.8); Carbon Dioxide 28 mEq/L (19-29); Chloride 96 mEq/L (98-109); Chol/HDL Ratio 4.5 (0-4.9); Cholesterol 113 mg/dL (< 200); Glucose 153 mg/dL (70-99); HDL Cholesterol 25 mg/dL (40-59); LDL Cholesterol,Calculated 67 mg/dL (0-99); Magnesium 1.7 mg/dL (1.6-2.6); Osmolality,Calculated 299 (280-300); Phosphorous 4.5 mg/dL (2.3-4.7); Potassium 4.1 mEq/L (3.5-4.5); Sodium 136 mEq/L (136-145); Triglycerides 103 mg/dL (< 150); eGFR For African Americans > 60 (> 60); eGFR For Non-African Americans > 60 (> 60)
[2016-08-19 04:30] LABS: Thyroid Stimulating Hormone 5.879 mcIU/mL (0.350-4.840)
[2016-08-19] MEDS ORDERED: 0.9 % Sodium Chloride 250 ML ONE (04:40)
[2016-08-19 06:23] LABS: Bilirubin,Urine Negative (Negative); Blood,Urine Negative (Negative); Clarity,Urine Clear (Clear); Color,Urine Yellow (Yellow); Glucose,Urine (UA) 100 mg/dL (Normal); Ketones,Urine Negative (Negative); Leukocyte Esterase,Urine Negative (Negative); Nitrite,Urine Negative (Negative); Protein,Urine 30 mg/dL (Neg-Trace); Specific Gravity,Urine 1.028 (1.010-1.025); Urobilinogen,Urine Normal (Normal)
[2016-08-19 06:25] LABS: Bacteria,Urine None Seen per hpf (None-Few); Hyaline Casts,Urine None Seen per lpf (None-Few); RBC,Urine 0-3 per hpf (0-3); Squamous Epithelial Cell,Urine Many per lpf (None-Few)
[2016-08-19] MEDS: Docusate Oral Soln 100 MG/10 ML UDC GTUBE SCH (07:56)
[2016-08-19] MEDS: Nystatin SUSP 5 ML UD.LIQ PO SCH ×5 (07:56→21:37)
--- NOTE | 2016-08-19 09:18 | Internal Med Progress Note ---
<Bayron Ramirez - Last Filed: 08/19/16 18:48> Date of Encounter: 08/19/16 Time of Encounter: 09:18 - Assessment and plan (1) Acute blood loss anemia Current Visit: Yes Status: Acute Assessment and plan: S/p two units of PRBC, 1 unit of FFP, vit k x1 given as well, hgb appropriately went up by two points, recheck in AM, it was due to old PEG tube affecting the large gastric ulcer. (2) S/P percutaneous endoscopic gastrostomy (PEG) tube placement Current Visit: Yes Status: Acute Assessment and plan: Old PEG were replaced with new one today by GI service, old one was causing bleeding in gastric ulcer. (3) Head and neck cancer Current Visit: Yes Status: Acute Assessment and plan: Currently getting chemo, following Dr. Ramsey as outpt. (4) Headache Current Visit: Yes Status: Acute Assessment and plan: Last head CT showed possible mets to brain, with recent onset headache, will order brain MRI to r/o mets. Qualifiers: Qualified Code(s): R51 - Headache (5) Gastric ulcer Current Visit: Yes Status: Acute Assessment and plan: S/p new peg tube placement, per GI recommendation, con't PPI infusion for 2 days and pt goes home on twice a day PPI through PEG tube along with twice a day carafate solution via PEG tube. Qualifiers: Gastric ulcer chronicity: acute Gastric ulcer complication status: unspecified whether hemorrhage or perforation present Qualified Code(s): K25.3 - Acute gastric ulcer without hemorrhage or perforation (6) DVT prophylaxis Current Visit: Yes Status: Acute Assessment and plan: IPC. - Subjective Interval history: Pt seen and examined, s/p peg tube replacement, resting comfortably at ICU, he stated that headache started yesterday, no nausea/emesis at this time. - Constitutional Vitals: Temp Pulse Resp BP Pulse Ox 97.5 F L 71 12 124/78 98 08/19/16 07:52 08/19/16 09:00 08/19/16 09:00 08/19/16 09:00 08/19/16 09:00 General appearance: Present: cachectic, cooperative, A&O X 3, no acute distress , underweight, answers questions appropriately - Head Head exam: Present: atraumatic, normocephalic - Eye Eye exam: Present: PERRL, conjuntiva pink, sclera anicteric Pupils: Present: PERRL - Neck Neck exam general surgery: Present: supple, trachea midline. Absent: lymphadenopathy - Respiratory Respiratory exam: Present: CTAB. Absent: accessory muscle use, rales, rhonchi, wheezes - Cardiovascular Cardiovascular exam: Present: RRR, +S1, +S2. Absent: diastolic murmur, gallop, rubs, systolic murmur - GI/Abdominal GI/Abdominal exam: Present: normal bowel sounds, soft, no peritoneal signs. Absent: distended, tenderness Additional comments: peg tube in place - Extremities Exam Extremities exam: Present: warm, radial pulses palpable and symetrical. Absent : calf tenderness, cyanotic, pedal edema - Neurological Exam Neurological exam: Present: CN II-XII intact, oriented X3, no focal deficits. Absent: pronater drift, facial droop, speech deficit - Skin Skin exam: Present: dry, intact Internal Medicine: Result - Labs CBC & Chem 7: 08/19/16 03:40 08/19/16 03:40 Labs: Short CBC 08/19/16 Range/Units 03:40 WBC 5.8 (4.3-11.1) K/mcL Hgb 9.4 L D (12.9-16.9) g/dL Hct 28.8 L (37.5-50.1) % Plt Count 275 (140-400) K/mcL BMP 08/19/16 03:40 Sodium 136 Potassium 4.1 Chloride 96 L Carbon Dioxide 28 BUN 53 H Creatinine 0.91 Glucose 153 H Calcium 9.5 Urine 08/19/16 Range/Units 06:10 Urine Color Yellow (Yellow) Urine Clarity Clear (Clear) Urine pH 6.0 (5.0-8.0) pH Units Ur Specific [place] 1.028 H (1.010-1.025) Urine Protein 30 H (Neg-Trace) mg/dL Urine Glucose (UA) 100 H (Normal) mg/dL - ABG Interpretation ABG results: PT/INR, D-dimer PT 15.9 Seconds (9.4-12.1) H 08/18/16 21:31 - VTE Documentation of Mechanical Device: Intermittent pneumatic compression device Consult Discharge Plan - Plan [facility] Care Provider[facility] - <Louis Esteban - Last Filed: 08/20/16 11:28> Date of Encounter: 08/20/16 - Constitutional Vitals: Temp Pulse Resp BP Pulse Ox 97.7 F 75 18 136/109 93 L 08/20/16 07:00 08/20/16 09:00 08/20/16 09:00 08/20/16 09:00 08/20/16 09:00 Internal Medicine: Result - Labs CBC & Chem 7: 08/20/16 03:16 08/20/16 11:00 Labs: Short CBC 08/20/16 Range/Units 03:16 WBC 3.4 L (4.3-11.1) K/mcL Hgb 9.0 L (12.9-16.9) g/dL Hct 27.4 L (37.5-50.1) % Plt Count 266 (140-400) K/mcL Neutrophils # 3.1 (1.6-8.9) K/mcL BMP 08/20/16 11:00 Sodium 139 Potassium 3.7 Chloride 103 Carbon Dioxide 27 BUN 27 H D Creatinine 0.61 L Glucose 97 Calcium 8.7 - ABG Interpretation ABG results: PT/INR, D-dimer PT 15.9 Seconds (9.4-12.1) H 08/18/16 21:31 - Attending Attestation I examined this patient and my medical decision-making was reviewed with the BAB[employer] FORMULA WORKER/PA/Advanced Practice Nurse/Resident Physician. I agree with the documented findings, disposition and treatment plan as described except to the extent set forth below. Monitor HB. EGD report noted. D/C octreotide. Agree with Dr. Ramirez.
--- NOTE | 2016-08-19 09:40 | Gastroenterology Consult Note ---
Date of Encounter: 08/19/16 Time of Encounter: 09:30 - Assessment and plan (1) Acute blood loss anemia Current Visit: Yes Status: Acute Assessment and plan: Patient with a large gastric ulcer diagnosed on last EGD. Now admitted with the hematemesis with drop in his hemoglobin. Patient also has INR of 1.5. Has been giving blood transfusion along with FAP and vitamin K. Hemoglobin is currently stable. Continue PPI infusion for now, does not need octreotide infusion can be discontinued (2) Gastric ulcer Current Visit: Yes Status: Acute Assessment and plan: UGI bleed due to gastric ulcer. Continue PPI infusion. Patient does has a PEG tube with the internal bolster in the antrum area and the ulcer is on the opposite wall of antrum. It seemed like that bolster on and off rub against ulcers and is causing this recurrent vomiting of blood. The PEG tube site may has to be change in order for the ulcer to heal. Qualifiers: Gastric ulcer chronicity: acute Gastric ulcer complication status: unspecified whether hemorrhage or perforation present Qualified Code(s): K25.3 - Acute gastric ulcer without hemorrhage or perforation - Time Spent With Patient Total time spent is greater than 50% in coordination of care (as documented) at patient's floor/unit and/or counseling patient: GI History of Present Illness - Data of Consult Consult date: 08/19/16 Requesting Physician: Juan Carlos Wu - Consult Narrative History of present illness: Mr. Avila is a 50 year old male [facility] patient with history significant for head and neck cancer/recurrent right tongue squamous cell carcinoma status post excision/right hemiglossectomy/right neck dissection was chemotherapy and adjuvant radiation therapy. Patient was in hospital few days ago with a GI bleed. Had EGD done that showed a large ulcer in the antral area but was not actively bleeding at that time. The patient yesterday afternoon had an episode of hematemesis again large amount,came to the ER found to be anemic and a low BP so admitted to the ICU and was given transfusion. Patient was started on octreotide and PPI infusion. currently is not vomiting anymore and his vital signs are stable Past Med Surg Social Fam HX - Past Medical History Medical history: arthritis, cancer (Head and neck carcinoma with recurring right tongue squamous cell carcinoma. Status post right hemiglossectomy and right neck dissection December 2014. Additional diagnoses right tongue squamous cell carcinoma excision March 2014. May 2016 CT of the neck PET scan shows disease recurrence.), COPD, GERD, GI bleed (Gonzalez's esophagus. Gastric ulcer. Moderate hiatal hernia. Erosive esophagitis.), hypertension, malignancy (Head and neck carcinoma status post cisplatin/SECRETARY ADMINISTRATIVE ASSISTANT adjuvant therapy, status post carbotaxol therapy,), osteoporosis, other (Cachexia of malignancy. Cancer-related pain.) Psychiatric history: no psych history, other - Past Surgical History Surgical History: cancer surgery (Recurrent right tongue squamous cell carcinoma status post right hemicolectomy glossectomy, right neck dissection thousand 15. Additional right lung squamous cell carcinoma excision March 2014.), herniorrhaphy (left inguinal), other (PEG tube placement. Esophagogastroduodenoscopy.) - Social History Smoking Status: Current every day smoker Packs per day: >1+ppd Smokeless Tobacco Status: No Alcohol use: occasionally (daily) Drug use: none - Family History Father Living Status: Mother Living Status: Hx Family Cancer: Yes (throat) Hx Family Endocrine Disorder: Yes Review of Systems: GI: as per [facility] GENERAL: denies fever, has some chills EYES: denies yellow discoloration ENT: Complain of some pain in the neck at his old surgical site and also pain in the right groin due to the femoral line CARDIO: denies chest pain, palpitations RESP: denies shortness of breath or wheezing : denies change in color of urine NEURO: denies any weakness HEME: Denies any bruising MS: denies joint pain, joint swelling or back pain. - Constitutional Vitals: Temp Pulse Resp BP Pulse Ox 97.5 F L 71 12 124/78 98 08/19/16 07:52 08/19/16 09:00 08/19/16 09:00 08/19/16 09:00 08/19/16 09:00 - Head Head exam: Present: atraumatic, normocephalic - Eye Eye exam: Present: sclera anicteric - Neck Additional comments: Right side of neck old surgical scar and extensive scarring from previous surgery 3 - Respiratory Additional comments: Bilateral good air entry. - Cardiovascular Cardiovascular exam: Present: +S1, +S2 Additional comments: rhythem regula - GI/Abdominal Additional comments: PEG tube is in place in the epigastric area - Neurological Exam Neurological exam: Present: oriented X3 - Skin Skin exam: Present: dry, warm Results - Labs CBC & Chem 7: 08/19/16 03:40 08/19/16 03:40 Labs: Last Result Calcium 9.5 mg/dL (8.6-10.8) 08/19/16 03:40 Troponin I 0.01 ng/mL (0-0.03) 08/18/16 21:31 Triglycerides 103 mg/dL (< 150) 08/19/16 03:40 Entire Visit Hgb 9.4 g/dL (12.9-16.9) L D 08/19/16 03:40 Hct 28.8 % (37.5-50.1) L 08/19/16 03:40 PT 15.9 Seconds (9.4-12.1) H 08/18/16 21:31 Total Bilirubin 0.5 mg/dL (0.2-1.2) 08/18/16 21:31 AST 11 Units/L (5-34) 08/18/16 21:31 ALT 13 Units/L (0-55) 08/18/16 21:31 - ABG ABG results: PT/INR, D-dimer PT 15.9 Seconds (9.4-12.1) H 08/18/16 21:31 Consult Discharge Plan - Plan [facility]: [facility] [Primary Care Provider[facility] -
--- NOTE | 2016-08-19 12:19 | Anesthesia Evaluation PreOp ---
Date of Encounter: 08/19/16 Time of Encounter: 13:35 - Past History Planned Operation: EGD Cardiac History: HTN Pulmonary History: Smoker (35 years) ELECTROMECHANIC History: Denies Any Significant HX Other Medical History: Other (tongue and neck cancer S/P hemiglossectomy/neck dissection S/P chemo/XRT) Anesthesia History: No Prior Anesthetic Complications, Past Anesthesia (PEG, hemiglossectomy, neck dissection), Difficult Airway Alcohol Use: occasionally (daily) Drug use: none Medications and Allergies Lisinopril [Zestril] 10 mg PO DAILY 01/26/16 [History] Baclofen 20 mg PO TID 03/14/16 [History] Ondansetron HCl [Zofran] 4 mg PO BID PRN #60 tablet 07/03/16 [Rx] Prochlorperazine Maleate [Compazine] 10 mg PO Q8HR PRN #90 tablet 07/03/16 [Rx] Hydromorphone HCl [Dilaudid] 2 mg PO Q3H PRN #40 tablet 08/15/16 [Rx] Ipratropium/Albuterol Neb [Duoneb] 3 ml IH Q6HR PRN #40 vial.neb 08/15/16 [Rx] Omeprazole Magnesium [PriLOSEC] 40 mg PO BID 30 Days 08/15/16 [Rx] Pregabalin [Lyrica] 150 mg PO BID #60 capsule 08/15/16 [Rx] Sucralfate [Carafate] 1 gm PO QID 30 Days 08/15/16 [Rx] OxyCODONE/APAP 5/325 [Percocet 5/325 MG] 1 tab PO Q6HR PRN 08/19/16 [History] Allergies No Known Allergies Allergy (Verified 02/14/15 06:26) - Meds/Allergy Pre-op Review Medications Reviewed: Yes Allergies Reviewed: Yes Beta Blockers on Current Med List: No Anesthesia Results - Labs 08/19/16 03:40 08/19/16 03:40 - Imaging EKG: report reviewed (08/13/2016 SR, possible ULICES, indeterminate axis) Anesthesia Exam Vital Signs/O2 Sat/Glucose, Most Recent Temp Pulse Resp BP Pulse Ox 97.6 F 70 12 115/76 99 08/19/16 11:43 08/19/16 12:00 08/19/16 12:00 08/19/16 12:00 08/19/16 12:00 Blood Glucose* 118 Height: 5'1''/1.55 m Weight: 91 lbs/41.6 kg NPO (# of Hours): 8 Pain Scale: 0 Pain Scale Used: Numeric (1 - 10) - HEENT Pupil (Motor): EOMI Mallampati: II Teeth: Poor dentition Oral Opening: Greater than 3 - ELECTROMECHANIC LOC: Oriented ELECTROMECHANIC Motor: Normal RUE, Normal LUE, Normal RLE, Normal LLE, Normal Face ELECTROMECHANIC Sensory: Normal: RUE, LUE, RLE, Face, Deficit: LLE (numbness) - Cardiac Rhythm: Regular Murmur: None - Pulmonary Breath Sounds: bilateral Clear Respiratory Effort: Symmetrical Anesthesia Assess/Plan ASA Score: 3 Modified Gopi Scale for Level of Consciousness: Cooperative, oriented, and tranquil Anesthetic Plan: MAC Monitoring Plan: Standard Monitors Recovery Plan: PACU
[2016-08-19] MEDS ORDERED: Propofol 500 MG/50 ML INFUS..BTL ONE (13:27)
--- NOTE | 2016-08-19 15:10 | Anesthesia Evaluation Post Op ---
Date of Encounter: 08/19/16 Time of Encounter: 15:09 - Vital Signs Vital Signs: Vital Signs/O2 Sat, Most Current Temp Pulse Resp BP Pulse Ox 97.6 F 69 12 111/80 100 08/19/16 14:03 08/19/16 14:03 08/19/16 14:03 08/19/16 14:03 08/19/16 14:03 - Lungs Lungs: Clear Ascult./Percussion - Airway Airway: Non-obstructed - Cardiovascular Regular Rate - Mental Status Mental Status: Alert & Oriented, Answers Appropriately - Pain Pain Scale: 0 Pain Scale used: Numeric (1 - 10) - Nausea Vomiting Nausea Vomiting: Not Present - Hydration Hydration: NPO, Has not voided
--- NOTE | 2016-08-19 20:31 | Electrocardiograph Report ---
[place] [id number] Test Date: 2016-08-18 Pat Name: Kj Avila Department: 105 Room: [facility] Gender: M Double Bass Player: : 1965 Requested By: Melvin Pollard Order Number: [id number] Reading MD: Royce Arreola DO Measurements Intervals [place] Rate: 83 P: 65 NE: 141 QRS: 1 QRSD: 106 T: 66 QT: 358 QTc: 398 Interpretive Statements SINUS RHYTHM POSSIBLE RIGHT ATRIAL ENLARGEMENT INCOMPLETE RIGHT BUNDLE BRANCH BLOCK Electronically Signed On 08-19-2016 20:29:28 EST by Royce Arreola DO
[2016-08-20] MEDS: *HR* OxyCODONE Immed Rel 5 MG TABLET PO PRN ×4 (01:54→20:51)
[2016-08-20 03:23] LABS: Hematocrit 27.4 % (37.5-50.1); Immature Platelets 2.4 % (1.1-6.1); Lymphocytes # 0.2 K/mcL (0.6-4.6); Mean Corpuscular HGB Conc 32.8 g/dL (31.6-35.5); Mean Corpuscular Hemoglobin 29.2 pg (28.0-33.3); Mean Platelet Volume 9.2 fL (9.4-12.4); Platelet Count 266 K/mcL (140-400); Red Blood Count 3.08 M/mcL (4.19-5.50); Red Cell Distribution Width 15.5 % (11.5-14.5)
[2016-08-20 03:49] LABS: Neutrophils # 3.1 K/mcL (1.6-8.9)
[2016-08-20 03:53] LABS: Anisocytosis 1+ (Not Present); Large Platelets Present (Not Present); Platelet Estimate Normal (Normal)
[2016-08-20 03:55] LABS: Polychromasia 1+ (Not Present)
[2016-08-20] MEDS: Pantoprazole 40 MG in 0.9 % Sodium Chloride Mini Bag 100 ML IVC SCH ×4 (04:04→20:46)
[2016-08-20] MEDS: *HR* HYDROmorphone (PF) 1 MG/ML SYRINGE IVP PRN ×5 (04:07→22:40)
[2016-08-20] MEDS: 0.9 % Sodium Chloride 1,000 ML IVC SCH ×2 (07:50→16:00)
[2016-08-20] MEDS: Nicotine 21 MG PATCH.TD24 TD SCH (08:00)
[2016-08-20] MEDS: Nystatin SUSP 5 ML UD.LIQ PO SCH ×4 (08:00→20:45)
[2016-08-20] MEDS: Docusate Oral Soln 100 MG/10 ML UDC GTUBE SCH ×2 (08:00→20:45)
--- NOTE | 2016-08-20 10:21 | Internal Med Progress Note ---
Date of Encounter: 08/20/16 Time of Encounter: 08:45 - Assessment and plan (1) Acute blood loss anemia Current Visit: Yes Status: Acute Assessment and plan: Improved S/P EGD and PEG tube replacement (08/19/16) Hematemesis resolved No active bleeding noted at this time H&H low but acceptable Will continue to closely monitor (2) S/P percutaneous endoscopic gastrostomy (PEG) tube placement Current Visit: Yes Status: Acute Assessment and plan: s/p PEG tube replacement GI eval greatly appreciated Will f/u with GI in regards to initiation of tube feedings Continue wound care as per GI (3) Gastric ulcer Current Visit: Yes Status: Chronic Assessment and plan: S/p new peg tube placement Will continue PPI infusion at this time D/Rui octreotide Will resume Sucrafate and PPI q12h after discharged awaiting GI input in regards to initiation of tube feedings. Qualifiers: Gastric ulcer chronicity: acute Gastric ulcer complication status: unspecified whether hemorrhage or perforation present Qualified Code(s): K25.3 - Acute gastric ulcer without hemorrhage or perforation (4) Leukopenia Current Visit: Yes Status: Chronic Assessment and plan: History of Head and Neck Ca currently undergoing chemotherapy with Dr. Charles Will closely monitor patient to continue further onc management with Dr. Charles after discharge Qualifiers: Leukopenia type: unspecified Qualified Code(s): D72.819 - Decreased white blood cell count, unspecified (5) Malnutrition Current Visit: Yes Status: Acute Assessment and plan: Nutrition consulted in regards to tube feedings and dietary recommendation Malnutrition due to underlying malignancy, NPO status, along with malfunctioning PEG tube/GI bleed Will resume tube feedings once cleared by GI (6) Head and neck cancer Current Visit: Yes Status: Chronic Assessment and plan: Patient currently undergoing chemotherapy with Dr. Charles Will continue treatment plan after discharge with primary oncologist (7) Hyperglycemia Current Visit: Yes Status: Acute Assessment and plan: No noted history of DM Will obtain A1C continue to monitor blood glucose (8) DVT prophylaxis Current Visit: Yes Status: Acute Assessment and plan: IPCD - Subjective Interval history: Patient is a 50y/o male admitted for UGIB secondary to a bleeding gastric ulcer. Patient is s/p EGD and PEG tube replacement as the initial PEG tube had the internal bolster in the antrum area and the ulcer was on the opposite wall of the antrum leading to the active bleeding. PEG tube was replaced and placed at a different site by GI (Dr. Macias on 08/19/16). Post-op patient has not had any active bleeding or hemetemesis. At this time,patient is resting comfortably in bed and reports of pain at the PEG site. Denies any further bleeds or any other complains at this time. Pt will be transferred out of the ICU today, pending bed placement. - Constitutional Vitals: Temp Pulse Resp BP Pulse Ox 97.7 F 75 18 136/109 93 L 08/20/16 07:00 08/20/16 09:00 08/20/16 09:00 08/20/16 09:00 08/20/16 09:00 General appearance: Present: cachectic, cooperative, A&O X 3, no acute distress , underweight, answers questions appropriately - Head Head exam: Present: atraumatic, normocephalic - Eye Eye exam: Present: normal appearance, conjuntiva pink, sclera anicteric - Respiratory Respiratory exam: Present: CTAB. Absent: respiratory distress, wheezes - Cardiovascular Cardiovascular exam: Present: RRR, +S1, +S2 - GI/Abdominal GI/Abdominal exam: Present: normal bowel sounds, soft, tenderness (PEG site in place with dressing intact, tenderness at the site of PEG tube) - Extremities Exam Extremities exam: Present: warm, radial pulses palpable and symetrical. Absent : calf tenderness, pedal edema, tenderness - Neurological Exam Neurological exam: Present: alert, oriented X3 - Psychiatric Psychiatric exam: Present: normal affect, normal mood Internal Medicine: Result - Labs CBC & Chem 7: 08/20/16 03:16 08/19/16 03:40 Labs: Short CBC 08/20/16 Range/Units 03:16 WBC 3.4 L (4.3-11.1) K/mcL Hgb 9.0 L (12.9-16.9) g/dL Hct 27.4 L (37.5-50.1) % Plt Count 266 (140-400) K/mcL Neutrophils # 3.1 (1.6-8.9) K/mcL - ABG Interpretation ABG results: PT/INR, D-dimer PT 15.9 Seconds (9.4-12.1) H 08/18/16 21:31 - VTE Documentation of Mechanical Device: Intermittent pneumatic compression device Consult Discharge Plan - Plan [facility]errals: [facility] [Primary Care Provider] -
[2016-08-20] MEDS ORDERED: Baclofen 10 MG TABLET PO PRN (10:26)
[2016-08-20] MEDS ORDERED: Ipratropium/Albuterol Neb 3 ML IH PRN (10:26)
[2016-08-20 11:24] LABS: BUN/Creatinine Ratio 44 (6-26); Calcium 8.7 mg/dL (8.6-10.8); Carbon Dioxide 27 mEq/L (19-29); Chloride 103 mEq/L (98-109); Glucose 97 mg/dL (70-99); Magnesium 1.3 mg/dL (1.6-2.6); Osmolality,Calculated 293 (280-300); Phosphorous 2.7 mg/dL (2.3-4.7); Potassium 3.7 mEq/L (3.5-4.5); Sodium 139 mEq/L (136-145); eGFR For African Americans > 60 (> 60); eGFR For Non-African Americans > 60 (> 60)
[2016-08-20 11:25] LABS: Blood Urea Nitrogen 27 mg/dL (8-26)
[2016-08-20] MEDS ORDERED: Magnesium Sulfate 1 GM in D5% in Water 100 ML IVPB ONE (15:09)
[2016-08-20] MEDS: Pregabalin 75 MG CAPSULE PO SCH (20:45)
[2016-08-21] MEDS: 0.9 % Sodium Chloride 1,000 ML IVC SCH ×2 (02:19→11:04)
[2016-08-21] MEDS: Pantoprazole 40 MG in 0.9 % Sodium Chloride Mini Bag 100 ML IVC SCH ×3 (02:20→12:50)
[2016-08-21] MEDS: *HR* OxyCODONE Immed Rel 5 MG TABLET PO PRN ×2 (04:37→08:32)
[2016-08-21 05:12] LABS: Basophils % 0.2 %; Eosinophils % 0.9 %; Hematocrit 27.2 % (37.5-50.1); Hemoglobin 8.9 g/dL (12.9-16.9); Immature Granulocytes % 0.5 % (0-4); Lymphocytes # 0.4 K/mcL (0.6-4.6); Lymphocytes % 8.3 %; Mean Corpuscular HGB Conc 32.7 g/dL (31.6-35.5); Mean Corpuscular Hemoglobin 28.8 pg (28.0-33.3); Mean Platelet Volume 9.5 fL (9.4-12.4); Monocytes # 0.2 K/mcL (0.0-1.3); Monocytes % 5.1 %; Neutrophils # 3.7 K/mcL (1.6-8.9); Platelet Count 276 K/mcL (140-400); Red Blood Count 3.09 M/mcL (4.19-5.50)
[2016-08-21 05:25] LABS: BUN/Creatinine Ratio 32 (6-26); Blood Urea Nitrogen 17 mg/dL (8-26); Calcium 8.1 mg/dL (8.6-10.8); Carbon Dioxide 28 mEq/L (19-29); Chloride 99 mEq/L (98-109); Glucose 97 mg/dL (70-99); Magnesium 1.3 mg/dL (1.6-2.6); Osmolality,Calculated 281 (280-300); Potassium 3.3 mEq/L (3.5-4.5); Sodium 135 mEq/L (136-145); eGFR For African Americans > 60 (> 60); eGFR For Non-African Americans > 60 (> 60)
[2016-08-21 05:39] LABS: Platelet Estimate Normal (Normal); Reactive Lymphocytes Present (Not Present); Toxic Granulation Present (Not Present)
[2016-08-21] MEDS: Nystatin SUSP 5 ML UD.LIQ PO SCH ×2 (08:32→12:52)
[2016-08-21] MEDS: Docusate Oral Soln 100 MG/10 ML UDC GTUBE SCH (08:33)
[2016-08-21] MEDS: Nicotine 21 MG PATCH.TD24 TD SCH (08:33)
[2016-08-21] MEDS: Pregabalin 75 MG CAPSULE PO SCH (08:33)
--- NOTE | 2016-08-21 10:09 | Gastroenterology Progress Note ---
<Elder Bang Antonieta - Last Filed: 08/21/16 10:06> Date of Encounter: 08/21/16 Time of Encounter: 09:30 - Assessment and plan (1) Gastric ulcer Status: Chronic Assessment and plan: UGI bleed due to gastric ulcer. Previous PEG tube with the internal bolster in the antrum area and the ulcer is on the opposite wall of antrum. PEG tube replaced into a different location to allow ulcer to heal. Continue Carafate BID for 1 month and PPI BID for 3 months. Repeat EGD in 3 months. Qualifiers: Gastric ulcer chronicity: acute Gastric ulcer complication status: unspecified whether hemorrhage or perforation present Qualified Code(s): K25.3 - Acute gastric ulcer without hemorrhage or perforation (2) Acute blood loss anemia Status: Acute Assessment and plan: Improved. Secondary to gastric ulcer. Continue Carafate BID and PPI BID. (3) S/P percutaneous endoscopic gastrostomy (PEG) tube placement Status: Acute Assessment and plan: PEG tube replaced 08/19/16. - Time Spent With Patient Total time spent is greater than 50% in coordination of care (as documented) at patient's floor/unit and/or counseling patient: - Subjective Interval history: Pt reports feeling well, and is without acute complaint at this time. He denies any further bleeding. - Constitutional Vitals: Temp Pulse Resp BP Pulse Ox 97.6 F 61 14 147/88 99 08/21/16 07:58 08/21/16 07:58 08/21/16 07:58 08/21/16 07:58 08/21/16 07:58 General appearance: Present: cooperative, A&O X 3, no acute distress, answers questions appropriately - Head Head exam: Present: atraumatic, normocephalic - Eye Eye exam: Present: normal appearance, sclera anicteric - ENT ENT exam: Present: mucous membranes dry - Neck Neck exam general surgery: Present: normal inspection, trachea midline - Respiratory Respiratory exam: Present: CTAB. Absent: rales, rhonchi - Cardiovascular Cardiovascular exam: Present: RRR, +S1, +S2 - GI/Abdominal GI/Abdominal exam: Present: soft, no peritoneal signs. Absent: distended, firm , guarding, tenderness Additional comments: PEG tube in place. - Rectal Rectal exam: Present: deferred - Extremities Exam Extremities exam: Present: warm - Neurological Exam Neurological exam: Present: no focal deficits - Psychiatric Psychiatric exam: Present: normal affect, normal mood - Skin Skin exam: Present: dry, intact, normal color, warm Results - Labs CBC & Chem 7: 08/21/16 04:43 08/21/16 04:43 Labs: Last Result Calcium 8.1 mg/dL (8.6-10.8) L 08/21/16 04:43 Troponin I 0.01 ng/mL (0-0.03) 08/18/16 21:31 Triglycerides 103 mg/dL (< 150) 08/19/16 03:40 Entire Visit Hgb 8.9 g/dL (12.9-16.9) L 08/21/16 04:43 Hct 27.2 % (37.5-50.1) L 08/21/16 04:43 PT 15.9 Seconds (9.4-12.1) H 08/18/16 21:31 Total Bilirubin 0.5 mg/dL (0.2-1.2) 08/18/16 21:31 AST 11 Units/L (5-34) 08/18/16 21:31 ALT 13 Units/L (0-55) 08/18/16 21:31 - ABG ABG results: PT/INR, D-dimer PT 15.9 Seconds (9.4-12.1) H 08/18/16 21:31 - Impressions Impressions Brain MRI 08/19/16 18:41 IMPRESSION: No acute intracranial abnormality. No mass lesion or abnormal intracranial enhancement to suggest intracranial metastasis. The low-attenuation area in the right parietal lobe on the prior CT is likely related to artifacts. Mild parenchymal volume loss. Mild chronic microvascular disease. D/ / Srikanth Danielle MD / Srikanth Danielle MD Interpreting Provider: Srikanth Danielle MD - VTE Documentation of Mechanical Device: Intermittent pneumatic compression device Consult Discharge Plan - Plan Instructions: Percutaneous Endoscopic Gastrostomy Insertion (DC), Malnutrition (DC) Referrals: [facility] [Primary Care Provider] - 08/28/16 Preeit Macias MD [Partnered Physician] - 09/04/16 Prescriptions: Nicotine Patch [Nicoderm] 21 mg TD DAILY #14 patch.td24 <Preeti Macias - Last Filed: 08/21/16 17:53> Date of Encounter: 08/21/16 Time of Encounter: 14:00 - Assessment and plan (1) Acute blood loss anemia Status: Acute (2) Gastric ulcer Status: Chronic Qualifiers: Gastric ulcer chronicity: acute Gastric ulcer complication status: unspecified whether hemorrhage or perforation present Qualified Code(s): K25.3 - Acute gastric ulcer without hemorrhage or perforation - Time Spent With Patient Total time spent is greater than 50% in coordination of care (as documented) at patient's floor/unit and/or counseling patient: - Constitutional Vitals: Temp Pulse Resp BP Pulse Ox 97.9 F 71 18 141/91 99 08/21/16 12:00 08/21/16 15:07 08/21/16 14:00 08/21/16 14:00 08/21/16 07:58 Results - Labs CBC & Chem 7: 08/21/16 04:43 08/21/16 04:43 Labs: Last Result Calcium 8.1 mg/dL (8.6-10.8) L 08/21/16 04:43 Troponin I 0.01 ng/mL (0-0.03) 08/18/16 21:31 Triglycerides 103 mg/dL (< 150) 08/19/16 03:40 Entire Visit Hgb 8.9 g/dL (12.9-16.9) L 08/21/16 04:43 Hct 27.2 % (37.5-50.1) L 08/21/16 04:43 PT 15.9 Seconds (9.4-12.1) H 08/18/16 21:31 Total Bilirubin 0.5 mg/dL (0.2-1.2) 08/18/16 21:31 AST 11 Units/L (5-34) 08/18/16 21:31 ALT 13 Units/L (0-55) 08/18/16 21:31 - ABG ABG results: PT/INR, D-dimer PT 15.9 Seconds (9.4-12.1) H 08/18/16 21:31 - Impressions Impressions Brain MRI 08/19/16 18:41 IMPRESSION: No acute intracranial abnormality. No mass lesion or abnormal intracranial enhancement to suggest intracranial metastasis. The low-attenuation area in the right parietal lobe on the prior CT is likely related to artifacts. Mild parenchymal volume loss. Mild chronic microvascular disease. D/ / Srikanth Danielle MD / Srikanth Danielle MD Interpreting Provider: Srikanth Danielle MD - Attending Attestation I examined this patient and my medical decision-making was reviewed with the PUMP REBUILDER/PA/Advanced Practice Nurse/Resident Physician. I agree with the documented findings, disposition and treatment plan as described except to the extent set forth below.
[2016-08-21] MEDS: *HR* HYDROmorphone (PF) 1 MG/ML SYRINGE IVP PRN (11:03)
[2016-08-21] MEDS ORDERED: Potassium Chloride Elixir 20 MEQ/15 ML UDC GTUBE ONE (13:42)
[2016-08-21] MEDS ORDERED: Magnesium Sulfate 2 GM in D5% in Water 100 ML IVPB ONE (13:46)
--- NOTE | 2016-08-21 14:19 | Discharge Summary ---
Date of Encounter: 08/21/16 Time of Encounter: 14:00 - Discharge Diagnosis (1) Acute blood loss anemia Priority: Primary Status: Acute (2) S/P percutaneous endoscopic gastrostomy (PEG) tube placement Priority: Primary Status: Acute (3) Gastric ulcer Priority: Primary Status: Chronic Qualifiers: Gastric ulcer chronicity: acute Gastric ulcer complication status: unspecified whether hemorrhage or perforation present Qualified Code(s): K25.3 - Acute gastric ulcer without hemorrhage or perforation (4) Head and neck cancer Priority: Secondary Status: Chronic (5) Acute GI bleeding Priority: Primary Status: Acute - Discharge Medications Prescriptions: Nicotine Patch [Nicoderm] 21 mg TD DAILY #14 patch.td24 Home Medications: Lisinopril [Zestril] 10 mg PO DAILY 01/26/16 [History] Baclofen 20 mg PO TID 03/14/16 [History] Ondansetron HCl [Zofran] 4 mg PO BID PRN #60 tablet 07/03/16 [Rx] Prochlorperazine Maleate [Compazine] 10 mg PO Q8HR PRN #90 tablet 07/03/16 [Rx] Hydromorphone HCl [Dilaudid] 2 mg PO Q3H PRN #40 tablet 08/15/16 [Rx] Ipratropium/Albuterol Neb [Duoneb] 3 ml IH Q6HR PRN #40 vial.neb 08/15/16 [Rx] Omeprazole Magnesium [PriLOSEC] 40 mg PO BID 30 Days 08/15/16 [Rx] Pregabalin [Lyrica] 150 mg PO BID #60 capsule 08/15/16 [Rx] OxyCODONE/APAP 5/325 [Percocet 5/325 MG] 1 tab PO Q6HR PRN 08/19/16 [History] Nicotine Patch [Nicoderm] 21 mg TD DAILY #14 patch.td24 08/21/16 [Rx] Sucralfate [Carafate] 1 gm PO BID 30 Days 08/21/16 [Rx] Allergies/Adverse Reactions: Allergies No Known Allergies Allergy (Verified 02/14/15 06:26) Procedures/tests Complete & Pending: Procedures Performed prior 72 hours Category Date Time Status MR head/brain wo/w con [MR] Routine MRI 08/19/16 18:41 Completed ECG 12 lead ECG [ECG] Routine Y 08/19/16 01:13 Completed - Notes to Outpatient Provider Pertinent GI recommendation : Continue Carafate BID for 1 month and PPI BID for 3 months. Repeat EGD in 3 months. Date of admission: 08/18/16 23:16 Primary care physician: PCP OSMAN Consults: 08/19/16 09:17 Consult to Nutrition [CONS] Routine Comment: Consulting Provider: NUTRITION Reason for Dietary Consult: Supplemental Nutrition Discharging clinician: Deric Moran Anticipated date of discharge: 08/21/16 - Patient Status Disposition: Home, Self-Care Condition: Good Functional capacity at discharge: independent ambulation Overall status at discharge: patient is back to baseline - Discharge Instructions Follow Up With: OSMANPCP [Primary Care Provider] - 08/28/16 Preeti Macias MD [Partnered Physician] - 09/04/16 - Diet and Activity Activity: increase activity as tolerated Diet: other (Tube feeding) Interval History: 50-year-old male with 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 He states that he has not had any bleeding episodes prior to that. He states that his stool was been normal and the light brown. He had an endoscopy 5 days ago performed by Dr. Macias. He denies anticoagulant use. He denies chest pain, fever, diaphoresis, change in urination or bowel movements, rashes or edema. Hospital course: Mr. Avila is a 50 year old male admitted and GI bleeding from PEG tube. GI consult was called and saw patient. EGD was done. Gastric ulcer was found, possibly due to previous PEG tube caused the injury. PEG tube has been replaced by GI. Tube feeding started. Patient was placed on Protonix drip for 2 days. No further bleeding. Hemoglobin is generally stable. Plan to discharge patient home today with PEG tube PPI and carafate. Patient will follow up with GI as outpatient. I saw and examined the patient today. He is awake alert, oriented 3. No nausea no vomiting, no abdominal pain. No further bleeding. Vitals are stable. Will discharge patient home today, follow-up GI recommendation. Patient will follow-up with with GI as outpatient. Time spent discussing smoking cessation with patient: 3 to 10 minutes - Time Spent with Patient Total time spent providing and/or coordinating discharge services: 40 minutes Greater than 30 minutes - Constitutional Vitals: Temp Pulse Resp BP Pulse Ox 97.9 F 65 14 135/74 99 08/21/16 12:00 08/21/16 12:26 08/21/16 12:00 08/21/16 12:00 08/21/16 07:58 General appearance: Present: cachectic, cooperative, A&O X 3, no acute distress , underweight, answers questions appropriately - Head Head exam: Present: atraumatic, normocephalic - Eye Eye exam: Present: PERRL, conjuntiva pink, sclera anicteric Pupils: Present: PERRL - Neck Neck exam general surgery: Present: supple, trachea midline. Absent: lymphadenopathy - Respiratory Respiratory exam: Present: CTAB. Absent: accessory muscle use, rales, rhonchi, wheezes - Cardiovascular Cardiovascular exam: Present: RRR, +S1, +S2. Absent: diastolic murmur, gallop, rubs, systolic murmur - GI/Abdominal GI/Abdominal exam: Present: normal bowel sounds, soft, no peritoneal signs. Absent: distended, tenderness Additional comments: PEG tube in place - Extremities Exam Extremities exam: Present: warm, radial pulses palpable and symetrical. Absent : calf tenderness, cyanotic, pedal edema - Neurological Exam Neurological exam: Present: CN II-XII intact, oriented X3, no focal deficits. Absent: pronater drift, facial droop, speech deficit - Skin Skin exam: Present: dry, intact - VTE Documentation of Mechanical Device: Intermittent pneumatic compression device
[2016-08-21 15:22] VITALS: BP 141/91
--- NOTE | 2016-08-21 16:17 | Electrocardiograph Report ---
[place] [id number] Test Date: 2016-08-19 Pat Name: Kj Avila Department: 109 Room: 2N08 Gender: M [employer]: : 1965 Requested By: Juan Carlos Wu Order Number: [id number] Reading MD: Josy Jackson Measurements Intervals P[place]iss Rate: 75 P: 72 AR: 156 QRS: 18 QRSD: 108 T: 61 QT: 385 QTc: 415 Interpretive Statements SINUS RHYTHM POSSIBLE RIGHT ATRIAL ENLARGEMENT INCOMPLETE RIGHT BUNDLE BRANCH BLOCK Electronically Signed On 08-21-2016 16:16:04 EST by Josy Jackson
== END 2016-08-21 16:46 | disposition home or self-care (01) | DRG 222 ==
LOC: EMEROO 20:28 → SUATTDRO 23:16 → ICNU 23:16 → 2NNU 08-20 14:54
PROVIDERS: ADMIT Pediatrics; ATTEND Internal Medicine